=== PATIENT | male | born 1990 | race African-American/Black ===

== ENCOUNTER 2016-07-01 05:24 | Inpatient (IN) | payer MEDICARE, MEDICAID ==
[2016-07-01] MEDS ORDERED: Clindamycin 900 MG IVPREMIX(* 900 MG/50 ML SDV IV ONE (06:15)
[2016-07-01] MEDS ORDERED: cefTRIAXone(*) 1 GM in NS 0.9% 50 ML* 50 ML IVPB ONE (06:15)
[2016-07-01 08:41] LABS: Hematocrit 49 % (42-52); Hemoglobin 15.9 g/dl (14.0-18.0); Mean Corpuscular HGB Conc 33 g/dl (31-36); Mean Corpuscular Hemoglobin 29 pg (27-31); Mean Corpuscular Volume 88 fL (80-94); Mean Platelet Volume 10 um3 (7.4-10.4); Red Blood Count 5.56 10^6/ul (4.0-5.4); Red Cell Distribution Width 13 % (10.5-15); White Blood Count 11.6 10^3/ul (3.5-10.8)
[2016-07-01 08:57] LABS: Albumin 3.6 g/dL (3.2-5.2); BUN/Creatinine Ratio 11.4 (8-20); Calcium 9.3 mg/dL (8.6-10.3); EGFR African American 175.3 (>60); EGFR Non-African American 136.3 (>60); Globulin 4.3 g/dL (2-4); Potassium 3.8 mmol/L (3.5-5.0); Total Bilirubin 0.3 mg/dL (0.2-1.0); Total Protein 7.9 g/dL (6.4-8.9)
[2016-07-01] MEDS ORDERED: cefTRIAXone VIAL(*) 1,000 MG in NS 0.9% 50 ML* 50 ML IVPB SCH (09:03)
[2016-07-01] MEDS ORDERED: Ibuprofen PED LIQ* 100 MG/5 ML UDC G TUBE PRN (09:19)
[2016-07-01] MEDS ORDERED: Al Hydrox/Mg Hydrox/Simet LIQ* 30 ML UDC G TUBE PRN (09:19)
[2016-07-01] MEDS ORDERED: Albuterol 2.5 MG/3 ML NEB.SOL* (0.083%) INH PRN (09:19)
[2016-07-01] MEDS ORDERED: Acetaminophen PED LIQ* 160 MG/5 ML UDC G TUBE PRN (09:19)
[2016-07-01] MEDS ORDERED: Polyethylene Glycol 3350* 17 GM PACKET G TUBE PRN (09:19)
[2016-07-01] MEDS ORDERED: Mupirocin 2% OINT* TUBE TOPICAL PRN (09:19)
--- NOTE | 2016-07-01 09:23 | RAD ---
INDICATION: Shortness of breath. COMPARISON: Comparison is made with a prior study from October 21, 2015 TECHNIQUE: 2 portable films of the chest were obtained. FINDINGS: Cardiac and mediastinal contours appear to be within normal limits. Note is made of a tracheostomy tube. There is mild increased density present in the left hemithorax which appears to be due to positioning and rotation. No focal infiltrate or pleural effusion is seen. The lungs are underinflated. There is a moderate to severe dorsal lumbar scoliosis convex toward the right. The patient is status post posterior spinal fusion. IMPRESSION: NO EVIDENCE FOR ACUTE FINDING.
[2016-07-01] MEDS ORDERED: PHENobarbital LIQ(*) 30 MG/7.5 ML UDC PEG TUBE SCH ×2 (10:00→18:00)
[2016-07-01] MEDS ORDERED: Acetaminophen ADULT LIQ* 650 MG/20.3 ML UDC PEG TUBE PRN (10:30)
[2016-07-01] MEDS ORDERED: Ibuprofen ADULT LIQ* 600 MG/30 ML UDC PEG TUBE PRN (10:31)
[2016-07-01] MEDS: NS 0.9% 1000 ML* 1,000 ML IV SCH (11:11)
[2016-07-01] MEDS: Azithromycin IV(*) 500 MG in NS 0.9% 250 ML* 250 ML IVPB SCH (11:12)
[2016-07-01] MEDS: Budesonide NEB* 0.5 MG/2 ML NEB.SOLN INH SCH ×2 (11:21→20:52)
[2016-07-01] MEDS: PHENobarbital LIQ(*) 30 MG/7.5 ML UDC G TUBE SCH (12:41)
[2016-07-01] MEDS: Baclofen TAB* 10 MG G TUBE SCH ×3 (12:43→21:47)
[2016-07-01] MEDS: PHENobarbital LIQ(*) 30 MG/7.5 ML UDC PEG TUBE SCH (17:35)
[2016-07-01] MEDS ORDERED: DOCUSATE SODIUM G TUBE SCH (21:00)
--- NOTE | 2016-07-01 21:17 | HP ---
CC: Dr. Sheth HISTORY AND PHYSICAL: DATE OF ADMISSION: 07/01/16 PRIMARY CARE PROVIDER: Dr. Sheth. CHIEF COMPLAINT: Increased sleepiness, decreased oxygen saturation, and sputum production. HISTORY OF PRESENT ILLNESS: Mr. Walter is a 25-year-old male with severe developmental delay, cere bral palsy, seizure disorder and asthma who presented to the emergency room with concerns for low ox ygen saturations, increased secretions, and perhaps increased sleepiness. The patient the day prior to admission was noted to be sleepier than usual; however, had very little other issues. The patie nt was noted to have a low-grade temp the day prior to admission. He has had more production out of his tracheostomy than usual, which was odd. However, in general, he was appearing to be okay. On the morning of admission, he appeared worse and therefore he was brought to the ER for evaluation. Upon arrival to the emergency room, the patient required deep suctioning with the removal of copious amount of sputum. Since that time, the patient has appeared much improved. He is alert. He is no t in any respiratory distress, and his O2 saturations have been excellent. Of note, the patient lives at home with his grandmother. There has been upper respiratory illnesses going around the home. PAST MEDICAL HISTORY: 1. Cerebral palsy. 2. Seizure disorder. 3. Asthma. 4. Severe developmental delay. PAST SURGICAL HISTORY: 1. Tracheostomy. 2. G-tube placement. 3. Spinal fusion with jack placement. 4. Abdominal surgery for what was felt to be an abdominal abscess. MEDICATIONS: 1. Phenobarbital 20 mg/mL 15 mL p.o. q.a.m., 20 mL p.o. q.p.m. 2. MiraLAX 8.5 g p.o. daily. 3. MiraLAX 17 g p.o. daily p.r.n. no BM in 48 hours. 4. Bactroban applied topically to stomas twice daily p.r.n. redness. 5. Atrovent nasal spray 2 squirts to both nostrils twice daily. 6. Ibuprofen 100 mg/5 mL 20 mL per tube q.6 hours p.r.n. pain or fever. 7. Nexium 20 mg per tube twice daily. 8. Colace 60 mg/15 mL 15 mL per tube twice daily. 9. Budesonide 1 neb inhaled twice daily. 10. Baclofen 30 mg per tube 4 times a day. 11. Mylanta 30 mL per tube q.6 hours p.r.n. indigestion. 12. Albuterol 1 neb inhaled q.4 hours p.r.n. shortness of breath. 13. Tylenol 160 mg/5 mL 20 mL per tube q.4 hours p.r.n. pain or fever. ALLERGIES: No known drug allergies. FAMILY HISTORY: Mom and dad are both . SOCIAL HISTORY: The patient does not smoke. He does not drink. He lives with his grandmother, Aryan allen, who is his healthcare proxy. He has a private care at home. REVIEW OF SYSTEMS: Unobtainable. PHYSICAL EXAMINATION GENERAL: The patient is a well developed, male, who has upper and lower extremity contractures, tracheostomy in place, lying flat on his back in bed, in no acute distress. VITAL SIGNS: Blood pressure 116/76, pulse 77, respirations 26, temp 98.0, O2 sat is 99% on 35% trac h collar. HEENT: Pupils are equal. They are round. Extraocular muscles are intact. Oropharynx is clear. Or al mucosa is moist. The patient had a tracheostomy in place. No significant sputum is noted coming out of the tracheostomy. PULMONARY: Lungs are clear to auscultation bilaterally. CARDIAC: Normal S1, S2. Regular rate and rhythm. There are no murmurs. ABDOMEN: Bowel sounds are present. Abdomen is soft, nontender, and nondistended. There is Mitul-Terry button in the left upper quadrant. MUSCULOSKELETAL: There are significant contractures of bilateral upper and lower extremities. NEUROLOGIC: The patient is alert. He does not move any of his limbs. SKIN: Warm and dry. There are no rashes. There is a large scar on the right lower quadrant of the abdomen consistent with his prior abdominal surgery. PSYCH: Unable to be evaluated. DIAGNOSTIC STUDIES/LABORATORY DATA: WBC 11.6, hemoglobin 15.9, hematocrit 49, platelets 189, INR 1 .05. Sodium 135, potassium 3.8, chloride 100, CO2 28, BUN 8, creatinine 0.7, glucose 106, lactic ac id 0.5, calcium 9.3, bilirubin 0.3, AST 14, ALT 19, alk phos 90, troponin 0.01, albumin 3.6. Chest x-ray: No acute pulmonary findings to my evaluation. However, this has not been read by the radiol ogist yet. ASSESSMENT AND PLAN: Mr. Walter is a 25-year-old male with severe developmental delay and cerebral palsy, status post tracheostomy who presents to the emergency room with perhaps low O2 saturation a nd increased mucous out of tracheostomy and is being admitted for observation for upper respiratory infection. 1. Upper respiratory infection. There was concern initially for aspiration. I do not think this i s actually the case. Sounds as if the patient just made a significant amount of suctioning when he arrived to the emergency room. The patient is now essentially back to his baseline. He does have a mildly elevated white blood cell count. Therefore, I will place him ceftriaxone and azithromycin. A flu swab will be obtained. 2. Seizure disorder. The patient will continue on his usual doses of phenobarbital. 3. Constipation. The patient will continue on his usual home medication regimen. 4. Cerebral palsy. Diagnosis noted. The patient will continue on his usual dose of Baclofen. 5. DVT prophylaxis. According to Adult Thrombosis Prophylaxis Risk Factor Assessment Guide, the kylah garces has a total risk factor score of 2 making him moderate risk. He will be placed on heparin 500 0 units subcutaneous q.12 hours. 6. Code status is full. TIME SPENT: 65 minutes were spent admitting this patient. [id number]/[facility] #: [id number]
[2016-07-01] MEDS: IPRATROPIUM BROMIDE BOTH NARES SCH (21:39)
[2016-07-01] MEDS: Lansoprazole SOLUTAB* 30 MG G TUBE SCH (21:47)
[2016-07-01] MEDS: Heparin VIAL(*) 5000 UNITS/ML VIAL (FIVE THOUSAND) SUBCUT SCH (21:47)
[2016-07-02] MEDS: NS 0.9% 1000 ML* 1,000 ML IV SCH (02:15)
[2016-07-02] MEDS: cefTRIAXone VIAL(*) 1,000 MG in NS 0.9% 50 ML* 50 ML IVPB SCH (06:13)
[2016-07-02] MEDS: Budesonide NEB* 0.5 MG/2 ML NEB.SOLN INH SCH ×2 (07:53→21:31)
[2016-07-02 09:22] LABS: Hematocrit 48 % (42-52); Hemoglobin 15.9 g/dl (14.0-18.0); Mean Corpuscular HGB Conc 33 g/dl (31-36); Mean Corpuscular Hemoglobin 30 pg (27-31); Mean Corpuscular Volume 89 fL (80-94); Mean Platelet Volume 9 um3 (7.4-10.4); Red Blood Count 5.35 10^6/ul (4.0-5.4); Red Cell Distribution Width 14 % (10.5-15); White Blood Count 7.7 10^3/ul (3.5-10.8)
[2016-07-02] MEDS: Azithromycin IV(*) 500 MG in NS 0.9% 250 ML* 250 ML IVPB SCH (09:31)
[2016-07-02 09:33] LABS: BUN/Creatinine Ratio 13.2 (8-20); Calcium 9.3 mg/dL (8.6-10.3); EGFR African American 241.7 (>60); EGFR Non-African American 187.9 (>60); Potassium 4.1 mmol/L (3.5-5.0)
[2016-07-02] MEDS: Heparin VIAL(*) 5000 UNITS/ML VIAL (FIVE THOUSAND) SUBCUT SCH ×2 (09:34→20:49)
[2016-07-02] MEDS: Lansoprazole SOLUTAB* 30 MG G TUBE SCH ×2 (09:35→20:49)
[2016-07-02] MEDS: Polyethylene Glycol 3350* 17 GM PACKET G TUBE SCH (09:36)
[2016-07-02] MEDS: PHENobarbital LIQ(*) 30 MG/7.5 ML UDC G TUBE SCH (09:36)
[2016-07-02] MEDS: Baclofen TAB* 10 MG G TUBE SCH ×4 (09:36→20:49)
[2016-07-02] MEDS: IPRATROPIUM BROMIDE BOTH NARES SCH ×2 (09:49→20:49)
--- NOTE | 2016-07-02 10:55 | PN ---
Subjective Date of Service: 07/02/16 Interval History: Pt is happy per his personal nurse at the bedside. The patient is noted to have a copious amount of clear sputum coming out of his trach but this is reportedly normal per his nurse. Objective Active Medications: Acetaminophen (Tylenol Adult Liq*) 650 mg PEG TUBE Q4H PRN PRN Reason: pain/fever Al Hydrox/Mg Hydrox/Simethicone (Maalox Plus*) 30 ml G TUBE Q6HR PRN PRN Reason: INDIGESTION Albuterol (Ventolin 2.5 Mg/3 Ml Neb.Elsie*) 2.5 mg INH Q4H PRN PRN Reason: SHORTNESS OF BREATH Baclofen (Lioresal Tab*) 30 mg G TUBE QID [facility] Last Admin: 07/02/16 09:36 Dose: 30 mg Budesonide (Pulmicort Neb*) 0.5 mg INH BID [facility] Last Admin: 07/02/16 07:53 Dose: 0.5 mg Heparin Sodium (Porcine) (Heparin Vial(*)) 5,000 units SUBCUT Q12HR [facility] Last Admin: 07/02/16 09:34 Dose: 5,000 units Ceftriaxone Sodium 1,000 mg/ (Sodium Chloride) 50 mls @ 200 mls/hr IVPB Q24H [facility] Last Admin: 07/02/16 06:13 Dose: 200 mls/hr Azithromycin 500 mg/ Sodium (Chloride) 250 mls @ 250 mls/hr IVPB Q24H [facility] Last Admin: 07/02/16 09:31 Dose: 250 mls/hr Ibuprofen (Motrin Liq Adult*) 400 mg PEG TUBE QID PRN PRN Reason: PAIN OR TEMPERATURE Lansoprazole (Prevacid Solutab*) 30 mg G TUBE BID [facility] Last Admin: 07/02/16 09:35 Dose: 30 mg Mupirocin (Bactroban 2 % Oint*) 1 applic TOPICAL BID PRN PRN Reason: redness around stoma Non-Formulary Medication (Ipratropium [place] (Nasal) [Ipratropium [place]]) 2 spray BOTH NARES BID [facility] Last Admin: 07/02/16 09:49 Dose: Not Given Phenobarbital (Phenobarbital Liq(*)) 60 mg G TUBE DAILY [facility] Last Admin: 07/02/16 09:36 Dose: 60 mg Phenobarbital (Phenobarbital Liq(*)) 80 mg PEG TUBE QPM [facility] Last Admin: 07/01/16 17:35 Dose: 80 mg Polyethylene Glycol/Electrolytes (Miralax*) 8.5 gm G TUBE DAILY [facility] Last Admin: 07/02/16 09:36 Dose: 8.5 gm Polyethylene Glycol/Electrolytes (Miralax*) 17 gm G TUBE DAILY PRN PRN Reason: if no BM in 48hr Vital Signs 07/01/16 07/01/16 07/01/16 10:59 11:34 12:41 Temperature 98.0 F Pulse Rate 76 72 Respiratory 20 16 20 Rate Blood Pressure 156/100 (mmHg) O2 Sat by Pulse 100 95 Oximetry 07/01/16 07/01/16 07/01/16 14:41 15:23 15:54 Temperature 97.9 F Pulse Rate 100 Respiratory 16 18 Rate Blood Pressure 119/67 (mmHg) O2 Sat by Pulse 99 Oximetry 07/01/16 07/01/16 07/01/16 17:35 19:30 19:35 Temperature Pulse Rate Respiratory 16 18 18 Rate Blood Pressure (mmHg) O2 Sat by Pulse Oximetry 07/01/16 07/01/16 07/01/16 19:49 20:53 23:31 Temperature 97.9 F 98.4 F Pulse Rate 78 68 89 Respiratory 20 18 20 Rate Blood Pressure 110/65 115/78 (mmHg) O2 Sat by Pulse 97 100 100 Oximetry 07/02/16 07/02/16 07/02/16 03:52 07:21 08:00 Temperature 98.2 F 98.8 F Pulse Rate 116 115 Respiratory 18 22 20 Rate Blood Pressure 141/79 136/75 (mmHg) O2 Sat by Pulse 100 100 100 Oximetry 07/02/16 07/02/16 07/02/16 08:04 08:38 09:36 Temperature Pulse Rate 100 110 Respiratory 15 20 Rate Blood Pressure (mmHg) O2 Sat by Pulse 100 100 Oximetry Oxygen Devices in Use Now: - - 35% via trach collar Appearance: Young male sitting in a recliner, smiling, awake, NAD Eyes: No Scleral Icterus Ears/Nose/Mouth/Throat: Mucous Membranes Moist Respiratory: Symmetrical Chest Expansion and Respiratory Effort, - - coarse ronchi in all lung aleman Cardiovascular: NL Sounds; No Murmurs; No JVD, No Edema, - - tachycardic, somewhat difficult to hear over his coarse breath sounds Abdominal: NL Sounds; No Tenderness; No Distention, - - Cosmo button on LUQ Extremities: No Clubbing, Cyanosis, - - contracted extremities (UE/LE) Skin: No Rash or Ulcers, No Nodules or Sclerosis Neurological: Alert and Oriented x 3 Result Diagrams: 07/02/16 09:14 07/02/16 09:14 Microbiology and Other Data: Microbiology 07/01/16 09:20 Influenza Types A,B Antigen (TORITO) - Final Nasal Specimen received for Influenza A/B Molecular testing Assess/Plan/Problems-Billing Mr Walter is a 25 yo M who has a h/o severe developmental delay, CP and seizure disorder who was admitted to [facility] for evaluation of URI. - Patient Problems (1) URI (upper respiratory infection) Current Visit: Yes Status: Acute Code(s): J06.9 - ACUTE UPPER RESPIRATORY INFECTION, UNSPECIFIED SNOMED Code(s): 19480903 Comment: The patient had a mildly elevated WBC count yesterday. Now improved. I am not convinced he has pneumonia however will continue Abx therapy for 7 days total. Likely viral URI. Today the patient has become tachycardic with an unclear cause. I would like to continue to monitor the patient overnight to ensure his HR remains stable to improved. Will stop IVF. (2) Seizure disorder Current Visit: Yes Status: Chronic Code(s): G40.909 - EPILEPSY, UNSP, NOT INTRACTABLE, WITHOUT STATUS EPILEPTICUS SNOMED Code(s): 740429222 Comment: Continue phenobarbital at home dose. (3) Severe developmental delay Current Visit: Yes Status: Acute Code(s): R62.50 - UNSP LACK OF EXPECTED NORMAL PHYSIOL DEV IN CHILDHOOD SNOMED Code(s): 941483385 Comment: Diagnosis is noted. Continue baclofen for contractures. (4) DVT prophylaxis Current Visit: Yes Status: Acute Code(s): LDY4451 - SNOMED Code(s): 413742557 Comment: SCDs (5) Full code status Current Visit: Yes Status: Acute Code(s): Z78.9 - OTHER SPECIFIED HEALTH STATUS SNOMED Code(s): 692950661
[2016-07-02] MEDS: PHENobarbital LIQ(*) 30 MG/7.5 ML UDC PEG TUBE SCH (17:42)
[2016-07-03] MEDS: cefTRIAXone VIAL(*) 1,000 MG in NS 0.9% 50 ML* 50 ML IVPB SCH (05:54)
[2016-07-03 08:26] VITALS: BP 105/68
[2016-07-03] MEDS: Budesonide NEB* 0.5 MG/2 ML NEB.SOLN INH SCH (08:35)
[2016-07-03] MEDS: Baclofen TAB* 10 MG G TUBE SCH (09:26)
[2016-07-03] MEDS: Lansoprazole SOLUTAB* 30 MG G TUBE SCH (09:27)
[2016-07-03] MEDS: Heparin VIAL(*) 5000 UNITS/ML VIAL (FIVE THOUSAND) SUBCUT SCH (09:27)
[2016-07-03] MEDS: PHENobarbital LIQ(*) 30 MG/7.5 ML UDC G TUBE SCH (09:27)
[2016-07-03] MEDS: Polyethylene Glycol 3350* 17 GM PACKET G TUBE SCH (09:27)
--- NOTE | 2016-07-03 10:09 | PN ---
Subjective Date of Service: 07/03/16 Interval History: Pt is lying in bed, non-verbal. Objective Active Medications: Acetaminophen (Tylenol Adult Liq*) 650 mg PEG TUBE Q4H PRN PRN Reason: pain/fever Al Hydrox/Mg Hydrox/Simethicone (Maalox Plus*) 30 ml G TUBE Q6HR PRN PRN Reason: INDIGESTION Albuterol (Ventolin 2.5 Mg/3 Ml Neb.Elsie*) 2.5 mg INH Q4H PRN PRN Reason: SHORTNESS OF BREATH Baclofen (Lioresal Tab*) 30 mg G TUBE QID [facility] Last Admin: 07/03/16 09:26 Dose: 30 mg Budesonide (Pulmicort Neb*) 0.5 mg INH BID [facility] Last Admin: 07/03/16 08:35 Dose: 0.5 mg Heparin Sodium (Porcine) (Heparin Vial(*)) 5,000 units SUBCUT Q12HR [facility] Last Admin: 07/03/16 09:27 Dose: 5,000 units Ceftriaxone Sodium 1,000 mg/ (Sodium Chloride) 50 mls @ 200 mls/hr IVPB Q24H [facility] Last Admin: 07/03/16 05:54 Dose: 200 mls/hr Azithromycin 500 mg/ Sodium (Chloride) 250 mls @ 250 mls/hr IVPB Q24H [facility] Last Admin: 07/02/16 09:31 Dose: 250 mls/hr Ibuprofen (Motrin Liq Adult*) 400 mg PEG TUBE QID PRN PRN Reason: PAIN OR TEMPERATURE Lansoprazole (Prevacid Solutab*) 30 mg G TUBE BID [facility] Last Admin: 07/03/16 09:27 Dose: 30 mg Mupirocin (Bactroban 2 % Oint*) 1 applic TOPICAL BID PRN PRN Reason: redness around stoma Pto - Ipratropium [place] (Nasal) [ Ipratropium [place]] 2 [place]) 2 spray BOTH NARES BID [facility] Last Admin: 07/02/16 20:49 Dose: 2 spray Phenobarbital (Phenobarbital Liq(*)) 60 mg G TUBE DAILY [facility] Last Admin: 07/03/16 09:27 Dose: 60 mg Phenobarbital (Phenobarbital Liq(*)) 80 mg PEG TUBE QPM [facility] Last Admin: 07/02/16 17:42 Dose: 80 mg Polyethylene Glycol/Electrolytes (Miralax*) 8.5 gm G TUBE DAILY [facility] Last Admin: 07/03/16 09:27 Dose: 8.5 gm Polyethylene Glycol/Electrolytes (Miralax*) 17 gm G TUBE DAILY PRN PRN Reason: if no BM in 48hr Vital Signs 07/02/16 07/02/16 07/02/16 11:33 11:36 11:55 Temperature 98.4 F Pulse Rate 91 Respiratory 20 20 20 Rate Blood Pressure 126/72 (mmHg) O2 Sat by Pulse 99 Oximetry 07/02/16 07/02/16 07/02/16 15:22 17:42 19:28 Temperature 98.4 F 98.3 F Pulse Rate 88 109 Respiratory 22 22 24 Rate Blood Pressure 110/71 118/68 (mmHg) O2 Sat by Pulse 99 100 Oximetry 07/02/16 07/02/16 07/02/16 19:30 19:35 19:42 Temperature Pulse Rate Respiratory 16 16 16 Rate Blood Pressure (mmHg) O2 Sat by Pulse 100 Oximetry 07/02/16 07/03/16 07/03/16 23:32 04:02 07:31 Temperature 97.2 F 97.3 F 98.3 F Pulse Rate 85 62 62 Respiratory 15 19 16 Rate Blood Pressure 112/79 113/73 105/68 (mmHg) O2 Sat by Pulse 100 100 100 Oximetry 07/03/16 07/03/16 08:38 09:27 Temperature Pulse Rate 80 Respiratory 15 20 Rate Blood Pressure (mmHg) O2 Sat by Pulse 98 Oximetry Oxygen Devices in Use Now: - - 35% FiO2 via trach collar-98% saturation Appearance: Young male lying in bed, NAD Eyes: No Scleral Icterus Ears/Nose/Mouth/Throat: Mucous Membranes Moist Respiratory: Symmetrical Chest Expansion and Respiratory Effort, Clear to Auscultation Cardiovascular: NL Sounds; No Murmurs; No JVD, RRR, No Edema Abdominal: NL Sounds; No Tenderness; No Distention Extremities: No Clubbing, Cyanosis Skin: No Rash or Ulcers, No Nodules or Sclerosis Neurological: - - alert Result Diagrams: 07/02/16 09:14 07/02/16 09:14 Microbiology and Other Data: Microbiology 07/01/16 09:20 Influenza Types A,B Antigen ([facility]) - Final Nasal Specimen received for Influenza A/B Molecular testing Assess/Plan/Problems-Billing Mr Walter is a 25 yo M who has a h/o severe developmental delay, CP and seizure disorder who was admitted [place] [facility] [place]. - Patient Problems (1) URI (upper respiratory infection) Current Visit: Yes Status: Acute Code(s): J06.9 - ACUTE UPPER RESPIRATORY INFECTION, UNSPECIFIED SNOMED Code(s): 27538646 Comment: Improved. Tachycardia has resolved-unclear what was driving that up yesterday. Will treat with augmentin x 4 more days. (2) Seizure disorder Current Visit: Yes Status: Chronic Code(s): G40.909 - EPILEPSY, UNSP, NOT INTRACTABLE, WITHOUT STATUS EPILEPTICUS SNOMED Code(s): 142437529 Comment: Continue phenobarbital at home dose. (3) Severe developmental delay Current Visit: Yes Status: Acute Code(s): R62.50 - UNSP LACK OF EXPECTED NORMAL PHYSIOL DEV IN CHILDHOOD SNOMED Code(s): 651619756 Comment: Diagnosis is noted. Continue baclofen for contractures. (4) DVT prophylaxis Current Visit: Yes Status: Acute Code(s): ECL3854 - SNOMED Code(s): 594509848 Comment: SCDs (5) Full code status Current Visit: Yes Status: Acute Code(s): Z78.9 - OTHER SPECIFIED HEALTH STATUS SNOMED Code(s): 039689041 Status and Disposition: d/c home
[2016-07-03] MEDS: Azithromycin IV(*) 500 MG in NS 0.9% 250 ML* 250 ML IVPB SCH (10:21)
[2016-07-03] MEDS: IPRATROPIUM BROMIDE BOTH NARES SCH (10:24)
--- NOTE | 2016-07-03 16:22 | DS ---
DISCHARGE SUMMARY: DATE OF ADMISSION: 07/01/16 DATE OF DISCHARGE: 07/03/16 PRIMARY CARE PROVIDER: Dr. Sheth. PRINCIPAL DIAGNOSIS: Probably upper respiratory tract infection - possibly bacteria but more likely viral. SECONDARY DIAGNOSES: 1. Seizure disorder. 2. Severe developmental delay. DISCHARGE MEDICATIONS: 1. Phenobarbital 60 mg per tube q.a.m. 80 per tube q.p.m. 2. Ibuprofen 400 mg per tube q.6 hours p.r.n. pain. 3. Colace 60 mg per tube b.i.d. 4. Tylenol 650 mg per tube q.4 hours p.r.n. pain or fever. 5. Ipratropium bromide nasal spray 2 squirts both nostrils twice daily. 6. MiraLax 8.5 g per tube daily. 7. Albuterol 1 neb inhaled q.4 hours p.r.n. shortness of breath. 8. Mylanta 30 mL per tube q.6 hours p.r.n. indigestion. 9. MiraLax 17 g per tube daily p.r.n. No BM in 48 hours. 10. Bactroban apply topically twice daily to stoma as needed. 11. Nexium 20 mg per tube twice daily. 12. Budesonide 1 neb inhaled twice daily. 13. Baclofen 30 mg per tube q.i.d. 14. Augmentin 500 mg per tube twice daily. HOSPITAL COURSE: Mr. Walter is a 25-year-old male with a history of severe developmental delay and a seizure disorder with tracheostomy at baseline, who was brought to the emergency room with complaints of poor oxygen saturations and possible decreased lethargy. The patient was admitted to the medical floor for observation. It was unclear what was driving his condition; however, it was felt to be likely a viral URI. However, antibiotics were continued for concern of possible pneumonia. The patient improved rather quickly. He never had a fever. His white blood cell count was mildly elevated on admission; however, trended to normal the day after admission. The patient the day after admission; however, was noted to be tachycardic in the 100s. The etiology of this was not completely clear. The decision was made to observe him overnight and today the patient is doing much better. At this point, it was felt that the patient is stable for discharge home. FOLLOWUP CONCERNS: The patient is being discharged home today, 07/03/16. ACTIVITY: Activity level is as tolerated. DIET: Promote 4 cans per day with 100 mL flushes following the tube feed. CONDITION ON DISCHARGE: Stable. FOLLOWUP: The patient is to follow up with Dr. Sheth in the next 4 to 7 days. TIME SPENT: Twenty-five minutes were spent discharging this patient. CC: Dr. Sheth. * [id number]/[facility] #: [id number]
== END 2016-07-03 12:00 | disposition home or self-care (01) | DRG 153 ==
LOC: ED 05:24 → MED 08:31 → SSU 09:55
PROVIDERS: ADMIT Internal Medicine; ATTEND Hospitalist
DX: J06.9 Acute upper respiratory infection, unspecified (principal); Z43.0 Encounter for attention to tracheostomy; Z93.1 Gastrostomy status; R62.50 Unspecified lack of expected normal physiological development in childhood; J45.909 Unspecified asthma, uncomplicated; G80.9 Cerebral palsy, unspecified; G40.909 Epilepsy, unspecified, not intractable, without status epilepticus; K59.00 Constipation, unspecified
CPT/HCPCS: 36415; 71010; 80048; 80053; 83605; 84484; 85025; 85027; 85610; 85730; 87040; 87077; 87150; 87205; 87502; 93005; 94640; 94760; A9270-GY; J0456; J0696; J1644

== ENCOUNTER 2017-04-26 21:12 | Emergency (ER) | payer MEDICARE, MEDICAID ==
[2017-04-26 21:18] VITALS: BP 133/87
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
== END 2017-04-26 22:27 | disposition home or self-care (01) ==
LOC: ED 21:12
DX: G82.50 Quadriplegia, unspecified (principal); G80.9 Cerebral palsy, unspecified; Z87.19 Personal history of other diseases of the digestive system
CPT/HCPCS: 99282

== ENCOUNTER 2017-09-26 04:33 | Emergency (ER) | payer MEDICARE, MEDICAID ==
[2017-09-26 05:41] LABS: Urine Appearance Cloudy; Urine Blood 2+ (Negative); Urine Color Yellow; Urine Ketones Negative (Negative); Urine Protein 2+(100 mg/dL) (Negative); Urine Specific Gravity 1.009 (1.010-1.030); Urine Urobilinogen Negative (Negative)
[2017-09-26] MEDS ORDERED: NS 0.9% 1000 ML* 1,000 ML IV ONE (05:48)
[2017-09-26] MEDS ORDERED: Levofloxacin 500 MG IVPREMIX(* 500 MG/100 ML BAG IVPB ONE (05:50)
[2017-09-26 06:48] LABS: ABS Basophils 0.1 10^3/ul (0-0.2); ABS Eosinophils 1.1 10^3/ul (0-0.6); ABS Lymphocytes 1.5 10^3/ul (1.0-4.8); ABS Monocytes 1.1 10^3/ul (0-0.8); ABS Nucleated RBC 0 10^3/ul; Eosinophil % 12.7 % (0-6); Hematocrit 46 % (42-52); Hemoglobin 16.3 g/dl (14.0-18.0); Lymphocyte % 16.8 % (25-47); Mean Corpuscular HGB Conc 35 g/dl (31-36); Mean Corpuscular Hemoglobin 31 pg (27-31); Mean Corpuscular Volume 88 fL (80-94); Mean Platelet Volume 8.9 um3 (7.4-10.4); Nucleated Red Blood Cells % 0.1; Platelet Count 172 10^3/ul (150-450); Red Blood Count 5.23 10^6/ul (4.00-5.40); Red Cell Distribution Width 13 % (10.5-15); White Blood Count 8.8 10^3/ul (3.5-10.8)
[2017-09-26 06:56] LABS: INR 1.14 (0.77-1.02)
[2017-09-26 07:09] LABS: EGFR Non-African American 147.4 (>60)
[2017-09-26] MEDS ORDERED: Iohexol 300* (CONTRAST) 10 ML SDV IV ONE (07:29)
--- NOTE | 2017-09-26 08:41 | RAD ---
Indication: Decreased urine output, chest, abdomen pain. Contrast: Administered 76.2 ml of OMNIPAQUE 300 mg/ml CT of the chest, abdomen and pelvis was performed after oral and IV contrast administration. Coronal and sagittal reconstructed images were obtained. Tracheostomy tube is in place. There is no mediastinal or hilar adenopathy. The heart demonstrates no pericardial effusion. The lung aleman demonstrate no evidence of alveolar consolidation. Marked scoliosis with posterior rodding is noted. CT of the abdomen and pelvis demonstrates liver to be normal in size. No focal lesions or intrahepatic duct dilatation. Spleen is normal in size. There is a axial-type hiatal hernia noted. The kidneys demonstrates right hydronephrosis with atrophy of the right kidney. There appears to be delay in excretion of the right kidney with calculus in the lower pole of the right kidney. No obvious ureteral calculi is noted. There is stool with fecal impaction noted. Mark catheter is in place. The urinary bladder is collapsed. No free fluid is noted in the pelvis. IMPRESSION: Fecal stasis. Atrophic right kidney with likely chronic right hydronephrosis. Calculus is noted in the lower pole of the right kidney which is nonobstructive. There may be obstructive uropathy of the right kidney although no obvious calculus is noted in the ureter. No pneumonia is noted. Scoliosis of the thoracic spine. Posterior Altman rods are in place.
--- NOTE | 2017-09-26 09:44 | ED ---
Figueroa Tinoco Tiffany, scribed for Wai Sandra on 09/26/17 at 0844 . Progress - Progress Note Progress Note: Patient is signed out from Dr. Ellis, awaiting Chest/Abd/Pel CT, pending dispo. Chest/Abdomen/Pelvis CT, per radiologist, shows Fecal stasis. Atrophic right kidney with likely chronic right hydronephrosis. Calculus is noted in the lower pole of the right kidney which is nonobstructive. There may be obstructive uropathy of the right kidney although no obvious calculus is noted in the ureter. No pneumonia is noted. Scoliosis of the thoracic spine. Posterior Altman rods are in place. ED physician has reviewed this report. Re-Evaluation - Re-Evaluation First Eval Re-Evaluation Time: 09:22 Comment: Patient feels better. Grandmother, fast food supervisor and patient are agreeable to discharge. Course/Dx - Course Course Of Treatment: 26 y/o M BIB EMS complains of decreased frequency of urination since yesterday afternoon. Patient is signed out from Dr. Ellis, awaiting Chest/Abd/Pel CT and pending dispo. Discussed lab/scan results with patient and family. Patient will be discharged home with antibiotics with UTI and follow up from primary care provider. - Diagnoses Provider Diagnoses: Urinary tract infection Discharge - Sign-Out/Discharge Documenting (check all that apply): Discharge/Admit/Transfer - discharge - Discharge Plan Condition: Stable Disposition: HOME Prescriptions: Levofloxacin TAB* [Levaquin TAB*] 500 mg PO DAILY #9 tab Referrals: Arpit Sheth MD [Primary Care Provider] - 3 Days Additional Instructions: Follow up with Dr. Sheth, your primary care provider, in 3 days. Return to the Emergency Department for new or worsening symptoms. The documentation as recorded by the Figueroa pineda Tiffany accurately reflects the service I personally performed and the decisions made by , Wai Sandra.
[2017-09-26 12:57] VITALS: BP 129/92
--- NOTE | 2017-09-30 23:15 | ED ---
Gamaliel Tinoco Jacob, scribed for Dolores Ellis MD on 09/26/17 at 0711 . GI/ HPI - HPI Summary HPI Summary: Pt is a 26 y/o male brought in by EMS accompanied by wood caulker and grandmother due to concerns of decreased frequency of urination. Pt is a level 5 caveat and Hx is gathered from pt's wood caulker and grandmother. Pt appears abnormally bloated and is retaining a lot of fluid in abdomen. Pt has a catheter present, which was changed by wood caulker in the evening of 09/25/17 (one day ago). Per triage, urine is described as cloudy, concentrated, and odorous and there has been 400 cc urine in bag since 1600 one day ago (09/25). Last bowel movement was 1100 yesterday and reported as normal. Pt receives tube feed at 100cc/hr, but wood caulker states feeding was turned off at 0200 today. Pt receives Promote formula w/fluids four times a day. Caretakers report pt is afebrile. - History of Current Complaint Chief Complaint: EDUrogenitalProblems Time Seen by Provider: 09/26/17 04:49 Stated Complaint: GENERAL ILLNESS Hx Obtained From: Family/Physical Therapy Resident - level 5 caveat Hx From Patient Unobtainable Due To: Other - level 5 caveat due to severe developmental delay Onset/Duration: Started Hours Ago - 12 hours ago Current Severity: None Pain Intensity: 0 Associated Signs and Symptoms: Negative: Fever Aggravating Factor(s): Nothing Alleviating Factor(s): Nothing - Additional Pertinent History Primary Care Physician: [id number] - Allergy/Home Medications Allergies/Adverse Reactions: Allergies Allergy/AdvReac Type Severity Reaction Status Date / Time No Known Allergies Allergy Verified 09/26/17 04:54 PMH/Surg Hx/FS Hx/Imm Hx Endocrine/Hematology History: Denies: Hx Blood Transfusions, Hx Diabetes, Hx Thyroid Disease Cardiovascular History: Denies: Hx Congestive Heart Failure Respiratory History: Reports: Hx Asthma, Other Respiratory Problems/Disorders Denies: Hx Chronic Bronchitis, Hx Chronic Obstructive Pulmonary Disease (COPD ), Hx Cystic Fibrosis, Hx Lung Cancer, Hx Pleural Effusion, Hx Pneumonia, Hx Pulmonary Edema, Hx Pulmonary Embolism, Hx Seasonal Allergies, Hx Sleep Apnea GI History: Reports: Hx Gastroesophageal Reflux Disease, Hx Ileostomy - REMOVED , Hx Ulcer, Other GI Disorders Denies: Hx Cirrhosis, Hx Crohn's Disease, Hx Diverticulosis, Hx Gall Bladder Disease, Hx Gastrointestinal Bleed, Hx Hiatal Hernia, Hx Irritable Bowel, Hx Jaundice, Hx Obstructive Bowel, Hx Pyloric Stenosis History: Reports: Other Problems/Disorders - STRAIGHT CATH Denies: Hx Acute Renal Failure, Hx Benign Prostatic Hyperplasia, Hx Chronic Renal Failure, Hx Dialysis, Hx Kidney Infection, Hx Kidney Stones Musculoskeletal History: Reports: Hx Back Problems - steel jack in back, Hx Congenital Bone Abnormalities - CONTRACTURES, Other Musculoskeletal History - cerebal palsey Denies: Hx Arthritis, Hx Bursitis, Hx Fibromyalgia, Hx Gout, Hx Orthopedic Injury, Hx Osteoporosis, Hx Scoliosis, Hx Tendonitis Sensory History: Reports: Hx Legally Blind - SEE SHADOWS Denies: Hx Cataracts, Hx Contacts or Glasses, Hx Eye Injury, Hx Eye Prosthesis, Hx Glaucoma, Hx Macular Degeneration, Hx Vision Problem, Hx Deafness , Hx Hearing Aid, Hx Hearing Problem, Other Sensory Impairments Opthamlomology History: Reports: Hx Legally Blind - SEE SHADOWS Denies: Hx Cataracts, Hx Contacts or Glasses, Hx Eye Injury, Hx Eye Prosthesis, Hx Glaucoma, Hx Macular Degeneration, Hx Vision Problem, Other Sensory Impairments Neurological History: Reports: Hx Developmental Delay, Hx Seizures, Hx Spinal Cord Injury - RODS, Other Neuro Impairments/Disorders - Quadriplegia, cerebral palsy Denies: Hx Dementia, Hx Headaches, Hx Migraine, Hx Nerve Disease, Hx Transient Ischemic Attacks (TIA) - Surgical History Surgery Procedure, Year, and Place: RODS TO BACK, OSTOMY REMOVAL, TRACH PLACEMENT Infectious Disease History: No Infectious Disease History: Denies: Hx Hepatitis, Hx Tuberculosis, Traveled Outside the [place] in Last 30 Days - Family History Known Family History: Positive: Unknown - level 5 caveat - Social History Alcohol Use: None Hx Substance Use: No Substance Use Type: Reports: None Smoking Status (MU): Never Smoked Tobacco Review of Systems Negative: Fever Positive: Other - fluid retention and abdominal bloating Positive: frequency - reduced urination frequency, other - cloudy, concentrated , odorous urine All Other Systems Reviewed And Are Negative: No - Comments Additional Review of Systems Comments: level 5 caveat due to severe developmental delay Physical Exam - Summary Physical Exam Summary: VITAL SIGNS: Reviewed. GENERAL: Patient is contracted and is a small male for his age. Patient is not in any acute respiratory distress. HEAD AND FACE: No signs of trauma. No ecchymosis, hematomas or skull depressions. No sinus tenderness. EYES: PERRLA, EOMI x 2, No injected conjunctiva, no nystagmus. EARS: Hearing grossly intact. Ear canals and tympanic membranes are within normal limits. MOUTH: Oropharynx within normal limits. NECK: Supple, trachea is midline, no adenopathy, no JVD, no carotid bruit, no c- spine tenderness, neck with full ROM. Tracheostomy present. CHEST: Symmetric, no tenderness at palpation LUNGS: Decreased breath sounds bilaterally. No wheezing or crackles. CVS: Slight tachycardia. S1 and S2 present, no murmurs or gallops appreciated. ABDOMEN: Soft, non-tender. No signs of distention. No rebound no guarding, and no masses palpated. Bowel sounds are normal. Feeding tube and catheter present. EXTREMITIES: Contracted, no edema, no cyanosis or clubbing. SKIN: Dry and warm Triage Information Reviewed: Yes Vital Signs On Initial Exam: Initial Vitals Temp Pulse Resp BP Pulse Ox 98.8 F 103 19 148/88 93 09/26/17 04:54 09/26/17 04:54 09/26/17 04:54 09/26/17 04:54 09/26/17 04:54 Vital Signs Reviewed: Yes Diagnostics - Vital Signs Vital Signs Temp Pulse Resp BP Pulse Ox 09/26/17 05:43 100 18 124/83 09/26/17 05:27 82 93 09/26/17 04:54 98.8 F 103 19 148/88 93 - Laboratory Lab Results: Lab Results 09/26/17 Range/Units 05:25 Urine Color Yellow Urine Appearance Cloudy Urine pH 8.0 (5-9) Ur Specific [place] 1.009 L (1.010-1.030) Urine Protein 2+(100 mg/dl) A (Negative) Urine Ketones Negative (Negative) Urine Blood 2+ A (Negative) Urine Nitrate Negative (Negative) Urine Bilirubin Negative (Negative) Urine Urobilinogen Negative (Negative) Ur Leukocyte Esterase 3+ A (Negative) Urine WBC (Auto) 3+(>20/hpf) A (Absent) Urine RBC (Auto) 3+(>10/hpf) A (Absent) Ur Squamous Epith Cells Present A (Absent) Ur Transition Epith Cell Present A (Absent) Urine Bacteria Absent (Absent) Urine Glucose Negative (Negative) Result Diagrams: 09/26/17 06:38 09/26/17 06:38 Lab Statement: Any lab studies that have been ordered have been reviewed, and results considered in the medical decision making process. Re-Evaluation - Re-Evaluation First Eval Re-Evaluation Time: 09:22 Comment: Patient feels better. Grandmother, wood caulker and patient are agreeable to discharge. GIGU Course/Dx - Course Assessment/Plan: Pt is a 26 y/o male brought in by EMS due to concerns of decreased frequency of urination. Pt is a level 5 caveat and Hx is gathered from pt's wood caulker and grandmother. Pt appears abnormally bloated and is retaining a lot of fluid in abdomen. Pt has a catheter present, which was changed by wood caulker in the evening of 09/25/17 (one day ago). Per triage, urine is described as cloudy, concentrated, and odorous and there has been 400 cc urine in bag since 1600 one day ago (09/25). Last bowel movement was 1100 and reported as normal. Pt is described as afebrile. CT chest/abd/pel and urine culture ordered. In ED course, Pt receives fluids and Levofloxacin 500 mg ivpremix. Pt will be signed out to Dr. Sandra. - Diagnoses Provider Diagnoses: Urinary tract infection Discharge - Sign-Out/Discharge Documenting (check all that apply): Sign-Out Patient Signing out patient TO: Wai Sandra - Discharge Plan Condition: Stable Disposition: HOME Prescriptions: Levofloxacin TAB* [Levaquin TAB*] 500 mg PO DAILY #9 tab Patient Education Materials: Urinary Tract Infection in Men (ED) Referrals: Arpit Sheth MD [Primary Care Provider] - 3 Days Additional Instructions: Follow up with Dr. Sheth, your primary care provider, in 3 days. Return to the Emergency Department for new or worsening symptoms. The documentation as recorded by the Gamaliel pineda Jacob accurately reflects the service I personally performed and the decisions made by me, Dolores Ellis MD.
== END 2017-09-26 12:53 | disposition home or self-care (01) ==
LOC: ED 04:33
DX: N39.0 Urinary tract infection, site not specified (principal)
CPT/HCPCS: 36415; 71260; 74177; 80053; 81003; 81015; 82150; 83605; 83690; 83735; 85025; 85610; 85730; 86140; 87086; 96365; 99284; J1956; Q9967

== ENCOUNTER 2022-02-16 11:19 | Inpatient (IN) ==
[2022-02-16] MEDS ORDERED: NORMOSOL R PH IV ONE (13:07)
[2022-02-16] MEDS ORDERED: Piperacillin/Tazobac ADVAN 3.375 GM in NS 0.9% 100 ml BAG 100 ML IVPB ONE (13:07)
[2022-02-16] MEDS ORDERED: cefTRIAXone VIAL 1,000 MG VIAL IM ONE (14:10)
[2022-02-16 15:06] LABS: ABS Basophils 0.1 10^3/ul (0-0.2); ABS Lymphocytes 2.2 10^3/ul (1.0-4.8); ABS Monocytes 1.3 10^3/ul (0-0.8); ABS Neutrophils 2.2 10^3/ul (1.5-7.7); Eosinophil % 14.4 %; Hematocrit 44 % (42-52); Hemoglobin 14.9 g/dL (14.0-18.0); Lymphocyte % 32.4 %; Mean Corpuscular HGB Conc 34 g/dL (31-36); Mean Corpuscular Hemoglobin 30 pg (27-31); Mean Corpuscular Volume 88 fL (80-94); Mean Platelet Volume 8.2 fL (7.4-10.4); Nucleated Red Blood Cells % 0.1; Platelet Count 245 10^3/uL (150-450); Red Cell Distribution Width 13 % (10-15); White Blood Count 6.7 10^3/uL (3.5-10.8)
[2022-02-16 15:14] LABS: Activated Partial Thrombo Time 31.2 seconds (26.0-38.0); INR 1.17 (0.89-1.11)
[2022-02-16 15:30] LABS: High Sens Troponin Baseline < 3 pg/mL (<20)
[2022-02-16 15:42] LABS: ALT 26 U/L (7-52); AST 20 U/L (13-39); Albumin 3.9 g/dL (3.2-5.2); Alkaline Phosphatase 95 U/L (35-149); Anion Gap 6 mmol/L (2-11); Blood Urea Nitrogen 7 mg/dL (6-24); C Reactive Protein 106.91 mg/L (<8.01); CO2 Carbon Dioxide 29 mmol/L (22-32); Calcium 9.4 mg/dL (8.6-10.3); Chloride 99 mmol/L (101-111); Globulin 3.8 g/dL (2-4); Glucose 100 mg/dL (70-100); Sodium 134 mmol/L (135-145); Total Protein 7.7 g/dL (6.4-8.9); eGFR CKD-EPI 135.8 (>60)
[2022-02-16 16:13] LABS: Urine Appearance Turbid; Urine Bilirubin Negative (Negative); Urine Blood Negative (Negative); Urine Color Yellow; Urine Glucose Negative (Negative); Urine Ketones Negative (Negative); Urine Nitrite Negative (Negative); Urine Protein 1+(30 mg/dL) (Negative); Urine Specific Gravity 1.028 (1.002-1.030); Urine Urobilinogen Negative (Negative)
[2022-02-16 16:27] LABS: Urine Bacteria 1+ (Absent); Urine Red Blood Cell 3+(>10/hpf) (Absent); Urine Squamous Epithelial Cell Present (Absent); Urine Transitional Epithelial Present (Absent); Urine White Blood Cell 3+(>20/hpf) (Absent)
[2022-02-16 16:38] LABS: High Sensitivity Troponin 1 Hr < 3 pg/mL (<20)
[2022-02-16] MEDS ORDERED: Iohexol 350 (CONTRAST) 500 ML MDV IV ONE (17:28)
[2022-02-16] MEDS ORDERED: Ibuprofen ADULT LIQ 600 MG/30 ML UDC G TUBE PRN (21:14)
[2022-02-16] MEDS ORDERED: Acetaminophen PED 160 mg/5 ml UDC G TUBE PRN (21:14)
[2022-02-16] MEDS ORDERED: Albuterol 2.5mg/3 ml (0.083%) NEB.SOLN INH PRN (21:14)
[2022-02-16] MEDS ORDERED: Polyethylene Glycol 3350 17 GM PACKET G TUBE PRN (21:19)
[2022-02-16] MEDS ORDERED: Lactated Ringers 1000 ml BAG 1,000 ML IV ONE ×2 (21:23→22:17)
[2022-02-16] MEDS ORDERED: Zosyn per Pharmacy NOTE FOLLOW UP SCH (22:00)
[2022-02-16] MEDS ORDERED: Albuterol/Ipratropium NEB.SOL (2.5/0.5 MG) 3 ML NEB.SOLN INH ONE (22:16)
[2022-02-16] MEDS: PHENobarbital LIQ 30 MG/7.5 ML UDC PEG TUBE SCH (22:22)
[2022-02-16] MEDS: ZOSYN 3.375 GM x ONE DOSE over 30 miuntes IV (22:48)
[2022-02-16] MEDS: Lansoprazole SUSP ORALSYR 3 MG/ML G TUBE SCH ×2 (22:59→23:00)
[2022-02-16] MEDS: Docusate LIQ 100 MG/10 ML UDC G TUBE SCH (23:00)
[2022-02-16] MEDS: Enoxaparin 40 MG/0.4 ML SYR SUBCUT SCH (23:00)
[2022-02-17] MEDS: ZOSYN 3.375 GM x ONE DOSE over 30 miuntes IV (00:11)
[2022-02-17] MEDS: ZOSYN 3.375 GM Q8H per EXTENDED INFUSION IV SCH ×2 (04:43→05:12)
[2022-02-17 05:14] LABS: ABS Basophils 0.1 10^3/ul (0-0.2); ABS Eosinophils 0.8 10^3/ul (0-0.6); ABS Lymphocytes 1.9 10^3/ul (1.0-4.8); ABS Monocytes 1.5 10^3/ul (0-0.8); ABS Neutrophils 4.6 10^3/ul (1.5-7.7); Eosinophil % 9.5 %; Hematocrit 39 % (42-52); Hemoglobin 13.3 g/dL (14.0-18.0); Lymphocyte % 21.1 %; Mean Corpuscular HGB Conc 34 g/dL (31-36); Mean Corpuscular Hemoglobin 30 pg (27-31); Mean Corpuscular Volume 89 fL (80-94); Mean Platelet Volume 7.6 fL (7.4-10.4); Platelet Count 237 10^3/uL (150-450); Red Blood Count 4.44 10^6 /uL (4.18-5.48); Red Cell Distribution Width 13 % (10-15); White Blood Count 8.8 10^3/uL (3.5-10.8)
[2022-02-17 05:35] LABS: Calcium 8.2 mg/dL (8.6-10.3); eGFR CKD-EPI 135.8 (>60)
[2022-02-17] MEDS ORDERED: NS 0.9% 1000 ml BAG 1,000 ML IV SCH (05:45)
[2022-02-17] MEDS: Docusate LIQ 100 MG/10 ML UDC G TUBE SCH ×2 (08:51→20:26)
[2022-02-17] MEDS: PHENobarbital LIQ 30 MG/7.5 ML UDC PEG TUBE SCH ×2 (08:54→20:28)
[2022-02-17] MEDS: Lansoprazole SUSP ORALSYR 3 MG/ML G TUBE SCH ×2 (09:02→20:33)
[2022-02-17] MEDS: Mupirocin 2% OINT TUBE TOPICAL SCH ×2 (09:35→20:29)
[2022-02-17] MEDS: Budesonide NEB 0.5 MG/2 ML NEB.SOLN INH SCH ×2 (09:36→19:09)
[2022-02-17] MEDS ORDERED: Dextran 70/Hypromellose Tears Eye Drops 15 ml BTL (for Artificials Tears) BOTH EYES PRN (11:15)
[2022-02-17] MEDS: cefTRIAXone 1 gm/50 mL D5W 1 GM/50 ML BAG IV SCH (13:28)
[2022-02-17 17:44] LABS: TSH Ultra Thyroid Stim Horm 1.02 mcIU/mL (0.34-5.60)
[2022-02-17 17:46] LABS: Free T4 1.17 ng/dL (0.61-1.12)
[2022-02-17] MEDS: Enoxaparin 40 MG/0.4 ML SYR SUBCUT SCH (20:26)
[2022-02-18 05:48] LABS: ABS Basophils 0.1 10^3/ul (0-0.2); ABS Eosinophils 1.2 10^3/ul (0-0.6); ABS Lymphocytes 1.9 10^3/ul (1.0-4.8); ABS Monocytes 0.9 10^3/ul (0-0.8); Eosinophil % 20.4 %; Hematocrit 44 % (42-52); Lymphocyte % 31.3 %; Mean Corpuscular HGB Conc 34 g/dL (31-36); Mean Corpuscular Hemoglobin 31 pg (27-31); Mean Corpuscular Volume 90 fL (80-94); Mean Platelet Volume 8.4 fL (7.4-10.4); Nucleated Red Blood Cells % 0.1; Platelet Count 246 10^3/uL (150-450); Red Blood Count 4.86 10^6 /uL (4.18-5.48); Red Cell Distribution Width 13 % (10-15)
[2022-02-18 06:02] LABS: Calcium 9.2 mg/dL (8.6-10.3); Potassium 4.5 mmol/L (3.5-5.0); eGFR CKD-EPI 132.2 (>60)
[2022-02-18] MEDS: Budesonide NEB 0.5 MG/2 ML NEB.SOLN INH SCH (07:01)
[2022-02-18] MEDS: Docusate LIQ 100 MG/10 ML UDC G TUBE SCH (08:22)
[2022-02-18] MEDS: Lansoprazole SUSP ORALSYR 3 MG/ML G TUBE SCH (08:26)
[2022-02-18] MEDS: PHENobarbital LIQ 30 MG/7.5 ML UDC PEG TUBE SCH (08:26)
[2022-02-18] MEDS: Mupirocin 2% OINT TUBE TOPICAL SCH (08:37)
[2022-02-18 11:33] VITALS: BP 118/82
[2022-02-18] MEDS: cefTRIAXone 1 gm/50 mL D5W 1 GM/50 ML BAG IV SCH (12:44)
== END 2022-02-18 17:11 | disposition home or self-care (01) | DRG 871 ==
LOC: ED 11:19 → EDHOLD 20:49 → SUATTDRO 20:49 → EDHOLD 02-17 13:53 → MEDTELE 02-17 14:56
PROVIDERS: ADMIT Student in an Organized Health Care Education/Training Program; ATTEND Internal Medicine

== ENCOUNTER 2022-05-11 14:28 | Observation (INO) ==
[2022-05-11 15:15] LABS: Urine Appearance Turbid; Urine Bilirubin Negative (Negative); Urine Blood 1+ (Negative); Urine Color Yellow; Urine Glucose Negative (Negative); Urine Ketones Negative (Negative); Urine Nitrite Negative (Negative); Urine Protein 1+(30 mg/dL) (Negative); Urine Specific Gravity 1.009 (1.002-1.030); Urine Urobilinogen Negative (Negative)
[2022-05-11 15:33] LABS: Urine Bacteria 2+ (Absent); Urine Red Blood Cell 2+(6-10/hpf) (Absent); Urine White Blood Cell 3+(>20/hpf) (Absent)
[2022-05-11 16:08] LABS: ABS Basophils 0.1 10^3/ul (0-0.2); ABS Eosinophils 1.2 10^3/ul (0-0.6); ABS Lymphocytes 2.5 10^3/ul (1.0-4.8); ABS Monocytes 0.8 10^3/ul (0-0.8); ABS Neutrophils 3.8 10^3/ul (1.5-7.7); Eosinophil % 14.1 %; Hematocrit 48 % (42-52); Hemoglobin 16.1 g/dL (14.0-18.0); Lymphocyte % 29.6 %; Mean Corpuscular HGB Conc 33 g/dL (31-36); Mean Corpuscular Hemoglobin 30 pg (27-31); Mean Corpuscular Volume 89 fL (80-94); Platelet Count 226 10^3/uL (150-450); Red Blood Count 5.41 10^6 /uL (4.18-5.48); Red Cell Distribution Width 13 % (10-15); White Blood Count 8.3 10^3/uL (3.5-10.8)
[2022-05-11 16:43] LABS: Albumin 3.8 g/dL (3.2-5.2); C Reactive Protein 8.3 mg/L (<8.01); Calcium 9.1 mg/dL (8.6-10.3); Creatinine, Serum 0.55 mg/dL (0.67-1.17); Globulin 3.9 g/dL (2-4); Total Bilirubin 0.4 mg/dL (0.2-1.0); Total Protein 7.7 g/dL (6.4-8.9)
[2022-05-11 16:44] LABS: Potassium 4.1 mmol/L (3.5-5.0)
[2022-05-11 17:09] LABS: INR 1.23 (0.88-1.18)
[2022-05-11] MEDS ORDERED: Albuterol 2.5mg/3 ml (0.083%) NEB.SOLN INH PRN (17:21)
[2022-05-11] MEDS ORDERED: Acetaminophen PED 160 mg/5 ml UDC G TUBE PRN (17:21)
[2022-05-11] MEDS ORDERED: Heparin 5000 UNITS/ML 1 mL VIAL SUBCUT ONE (17:26)
[2022-05-11] MEDS ORDERED: NS 0.9% 1000 ml BAG 1,000 ML IV SCH ×2 (17:30→17:37)
[2022-05-11 17:41] LABS: Urine Appearance Turbid; Urine Bilirubin Negative (Negative); Urine Blood 3+ (Negative); Urine Color Yellow; Urine Glucose Negative (Negative); Urine Ketones Negative (Negative); Urine Nitrite Negative (Negative); Urine Protein 1+(30 mg/dL) (Negative); Urine Specific Gravity 1.012 (1.002-1.030); Urine Urobilinogen Negative (Negative)
[2022-05-11 17:45] LABS: Urine Bacteria 1+ (Absent); Urine Red Blood Cell 3+(>10/hpf) (Absent); Urine Squamous Epithelial Cell Present (Absent); Urine White Blood Cell 3+(>20/hpf) (Absent)
[2022-05-11 18:21] LABS: High Sensitivity Troponin 1 Hr < 3 pg/mL (<20)
[2022-05-11] MEDS: Budesonide NEB 0.5 MG/2 ML NEB.SOLN INH SCH (19:27)
[2022-05-11] MEDS ORDERED: PHENobarbital LIQ 30 MG/7.5 ML UDC PEG TUBE SCH (21:00)
[2022-05-11] MEDS: PHENobarbital LIQ 30 MG/7.5 ML UDC PEG TUBE SCH (21:42)
[2022-05-12] MEDS: Budesonide NEB 0.5 MG/2 ML NEB.SOLN INH SCH (06:46)
[2022-05-12 06:52] LABS: Calcium 8.9 mg/dL (8.6-10.3); Potassium 4.5 mmol/L (3.5-5.0)
[2022-05-12 06:57] LABS: Creatinine, Serum 0.71 mg/dL (0.67-1.17)
[2022-05-12] MEDS ORDERED: fentaNYL 100 mcg/2 ml 50 MCG/ML VIAL IV PRN (07:26)
[2022-05-12] MEDS ORDERED: Naloxone 0.4 mg VIAL 0.4 mg/ml 1 ml VIAL IV PRN (07:26)
[2022-05-12] MEDS ORDERED: Influenza vaccine *QUAD* *2022-23* 0.5 ML SYRINGE IM ONE (09:00)
[2022-05-12] MEDS ORDERED: Lansoprazole SUSP ORALSYR 3 MG/ML G TUBE SCH (09:00)
[2022-05-12] MEDS: PHENobarbital LIQ 30 MG/7.5 ML UDC PEG TUBE SCH (12:11)
[2022-05-12 13:44] VITALS: BP 109/69
[2022-05-12 14:48] LABS: ABS Basophils 0.1 10^3/ul (0-0.2); ABS Lymphocytes 1.4 10^3/ul (1.0-4.8); ABS Neutrophils 5.8 10^3/ul (1.5-7.7); Eosinophil % 10.9 %; Hematocrit 46 % (42-52); Hemoglobin 15.6 g/dL (14.0-18.0); Lymphocyte % 15.6 %; Mean Corpuscular HGB Conc 34 g/dL (31-36); Mean Corpuscular Hemoglobin 30 pg (27-31); Mean Corpuscular Volume 88 fL (80-94); Mean Platelet Volume 8.8 fL (7.4-10.4); Nucleated Red Blood Cells % 0.1; Platelet Count 212 10^3/uL (150-450); Red Blood Count 5.25 10^6 /uL (4.18-5.48); Red Cell Distribution Width 13 % (10-15); White Blood Count 9.3 10^3/uL (3.5-10.8)
== END 2022-05-12 16:45 | disposition home or self-care (01) ==
LOC: ED 14:28 → EDHOLD 14:28 → SSU 18:23
PROVIDERS: ADMIT Internal Medicine; ATTEND Internal Medicine

== ENCOUNTER 2022-09-24 05:02 | Inpatient (IN) ==
[2022-09-24] MEDS ORDERED: methylPREDNISolone SOD SUCC 125 mg 2 ML VIAL IV ONE (05:14)
[2022-09-24 05:48] LABS: Hematocrit 46.9 % (38-53); Hemoglobin 16.2 g/dL (13.2-16.3); Mean Corpuscular Hemoglobin 30.7 pg (27-33); Mean Corpuscular Hgb Conc 34.6 g/dL (31-36); Mean Corpuscular Volume 88.7 fL (80-97); Mean Platelet Volume 8.2 fL (7.5-11.2); Platelet Count 243 10^3/uL (150-450); Red Blood Count 5.29 10^6/uL (4.06-5.63); White Blood Count 13.9 10^3/uL (3.6-10.2)
[2022-09-24] MEDS ORDERED: Albuterol (2.5 MG) 0.5 % CONC 0.5 ML NEB.SOLN INH ONE (06:00)
[2022-09-24 06:06] LABS: ABS Eosinophils 1.4 10^3/uL (0.0-0.5); ABS Lymphocytes 1.5 10^3/uL (1.0-4.8); ABS Monocytes 1.6 10^3/uL (0.0-1.1); ABS Neutrophils 9.4 10^3/uL (1.5-7.6); ABS Nucleated RBC 0.01 10^3/ul; Albumin 3.9 g/dL (3.2-5.2); C Reactive Protein 20.88 mg/L (<8.01); Calcium 9.1 mg/dL (8.6-10.3); Creatinine, Serum 0.57 mg/dL (0.67-1.17); Eosinophil % 9.8 %; Globulin 4.1 g/dL (2-4); Lymphocyte % 10.7 %; Nucleated Red Blood Cells % 0.1 /100 WBC (0.0-0.4); Potassium 4.1 mmol/L (3.5-5.0); Total Bilirubin 0.3 mg/dL (0.2-1.0); eGFR CKD-EPI 133.6 (>60)
[2022-09-24] MEDS ORDERED: Azithromycin 500 mg/250 ml NS 500 MG/250 ML BAG IVPB ONE (06:22)
[2022-09-24] MEDS ORDERED: cefTRIAXone 1 gm/50 mL D5W 1 GM/50 ML BAG IV ONE (06:22)
[2022-09-24] MEDS ORDERED: PHENobarbital LIQ 30 MG/7.5 ML UDC PO ONE (08:14)
[2022-09-24] MEDS ORDERED: Acetaminophen PED 160 mg/5 ml UDC G TUBE PRN (10:31)
[2022-09-24] MEDS ORDERED: Ibuprofen ADULT LIQ 600 MG/30 ML UDC G TUBE PRN (10:31)
[2022-09-24] MEDS ORDERED: Ibuprofen PED LIQ 100 MG/5 ML UDC G TUBE PRN ×2 (11:00→14:00)
[2022-09-24] MEDS: Docusate LIQ 100 MG/10 ML UDC G TUBE SCH ×2 (11:38→22:02)
[2022-09-24] MEDS: Enoxaparin 40 MG/0.4 ML SYR SUBCUT SCH (11:39)
[2022-09-24] MEDS ORDERED: [UNRECOGNIZED DRUG - OTHER] PO SCH (12:00)
[2022-09-24] MEDS ORDERED: Cetirizine 5 mg CHEW TAB SCH (12:00)
[2022-09-24] MEDS ORDERED: FEXOFENADINE PO SCH (12:00)
[2022-09-24] MEDS ORDERED: PSEUDOEPHEDRINE PO SCH (12:00)
[2022-09-24 13:42] LABS: Urine Appearance Turbid; Urine Bilirubin Negative (Negative); Urine Blood Negative (Negative); Urine Color Amber; Urine Glucose Negative (Negative); Urine Ketones Negative (Negative); Urine Nitrite Positive (Negative); Urine Protein 2+(100 mg/dL) (Negative); Urine Specific Gravity 1.018 (1.002-1.030); Urine Urobilinogen Negative (Negative)
[2022-09-24 13:52] LABS: Urine Bacteria 1+ (Absent); Urine Red Blood Cell Absent (Absent); Urine White Blood Cell 3+(>20/hpf) (Absent)
[2022-09-24] MEDS: Budesonide NEB 0.5 MG/2 ML NEB.SOLN INH SCH ×2 (13:57→19:59)
[2022-09-24] MEDS: Albuterol 2.5mg/3 ml (0.083%) NEB.SOLN INH SCH ×2 (13:58→19:59)
[2022-09-24] MEDS: CETIRIZINE 5 MG/5 ML SCH (14:12)
[2022-09-24] MEDS: D5W 1/2 NS 1000 ml BAG 1,000 ML IV SCH (14:12)
[2022-09-24] MEDS ORDERED: PHENobarbital LIQ 30 MG/7.5 ML UDC PEG TUBE SCH (21:00)
[2022-09-24] MEDS: Pantoprazole VIAL 40 MG VIAL IV SCH (22:03)
[2022-09-24] MEDS: PHENobarbital LIQ 30 MG/7.5 ML UDC PEG TUBE SCH (22:44)
[2022-09-25] MEDS ORDERED: Lidocaine 4% GEL 10 GM TUBE TOPICAL ONE (03:01)
[2022-09-25] MEDS: D5W 1/2 NS 1000 ml BAG 1,000 ML IV SCH (03:31)
[2022-09-25] MEDS ORDERED: cefTRIAXone 1 gm/50 mL D5W 1 GM/50 ML BAG IV SCH (06:00)
[2022-09-25 06:23] LABS: ABS Basophils 0.1 10^3/uL (0.0-0.1); ABS Eosinophils 0.3 10^3/uL (0.0-0.5); ABS Lymphocytes 2.8 10^3/uL (1.0-4.8); ABS Monocytes 2.1 10^3/uL (0.0-1.1); ABS Neutrophils 7.6 10^3/uL (1.5-7.6); ABS Nucleated RBC 0.02 10^3/ul; Eosinophil % 2.2 %; Hematocrit 44.3 % (38-53); Hemoglobin 16.4 g/dL (13.2-16.3); Lymphocyte % 21.8 %; Mean Corpuscular Hemoglobin 32.7 pg (27-33); Mean Corpuscular Volume 88.6 fL (80-97); Nucleated Red Blood Cells % 0.1 /100 WBC (0.0-0.4); Platelet Count 200 10^3/uL (150-450); Red Cell Distribution Width 13.6 % (12-17); White Blood Count 12.7 10^3/uL (3.6-10.2)
[2022-09-25 06:24] LABS: CO2 Carbon Dioxide 25 mmol/L (22-32); Chloride 104 mmol/L (101-111); Sodium 136 mmol/L (135-145)
[2022-09-25 06:27] LABS: Anion Gap 7 mmol/L (2-16)
[2022-09-25 06:29] LABS: Blood Urea Nitrogen 6 mg/dL (6-24); Creatinine, Serum 0.48 mg/dL (0.67-1.17); Glucose 113 mg/dL (70-100); eGFR CKD-EPI 140.7 (>60)
[2022-09-25] MEDS: Azithromycin 500 mg/250 ml NS 500 MG/250 ML BAG IVPB SCH (06:35)
[2022-09-25] MEDS: Albuterol 2.5mg/3 ml (0.083%) NEB.SOLN INH SCH ×2 (07:10→19:05)
[2022-09-25] MEDS: Budesonide NEB 0.5 MG/2 ML NEB.SOLN INH SCH ×2 (07:10→19:05)
[2022-09-25] MEDS ORDERED: D5W 1/2 NS 1000 ml BAG 1,000 ML IV SCH (09:08)
[2022-09-25] MEDS ORDERED: Cefepime ADVAN 1 GM in NS 0.9% 50 ML 50 ML IVPB SCH (10:00)
[2022-09-25] MEDS ORDERED: Piperacillin/Tazobac ADVAN 3.375 GM in NS 0.9% 100 ml BAG 100 ML IV ONE (10:06)
[2022-09-25] MEDS ORDERED: Zosyn per Pharmacy NOTE FOLLOW UP SCH (11:00)
[2022-09-25] MEDS: PHENobarbital LIQ 30 MG/7.5 ML UDC PEG TUBE SCH ×2 (11:38→22:51)
[2022-09-25] MEDS: Enoxaparin 40 MG/0.4 ML SYR SUBCUT SCH (11:38)
[2022-09-25] MEDS: Docusate LIQ 100 MG/10 ML UDC G TUBE SCH ×2 (11:38→22:51)
[2022-09-25] MEDS: Pantoprazole VIAL 40 MG VIAL IV SCH ×2 (11:39→23:34)
[2022-09-25] MEDS: CETIRIZINE 5 MG/5 ML SCH (11:44)
[2022-09-25 12:28] LABS: Potassium, Whole Blood 1.7 mmol/L (3.4-4.5)
[2022-09-25] MEDS ORDERED: Potassium Chloride LIQUID 20 MEQ/15 ML LIQUID PO ONE (12:30)
[2022-09-25] MEDS ORDERED: KCL 10 MEQ/50 ML IVPREMIX 10 MEQ/50 ML BAG IV ONE (12:51)
[2022-09-25] MEDS ORDERED: KCL 20 MEQ/100 ML IVPREMIX 20 MEQ/100 ML BAG IV SCH (13:00)
[2022-09-25 13:24] LABS: Magnesium 1.5 mg/dL (1.9-2.7)
[2022-09-25 13:30] LABS: Creatinine, Serum 0.37 mg/dL (0.67-1.17); eGFR CKD-EPI 152.2 (>60)
[2022-09-25 13:41] LABS: Calcium 6.4 mg/dL (8.6-10.3)
[2022-09-25] MEDS ORDERED: Lidocaine 1% MPF 5 ML VIAL INJ ONE (13:55)
[2022-09-25] MEDS: ZOSYN 3.375 GM Q8H per EXTENDED INFUSION IV SCH (16:46)
[2022-09-26] MEDS: ZOSYN 3.375 GM Q8H per EXTENDED INFUSION IV SCH ×3 (00:29→18:00)
[2022-09-26] MEDS: Azithromycin 500 mg/250 ml NS 500 MG/250 ML BAG IVPB SCH (06:01)
[2022-09-26] MEDS: Albuterol 2.5mg/3 ml (0.083%) NEB.SOLN INH SCH ×2 (07:04→19:25)
[2022-09-26] MEDS: Budesonide NEB 0.5 MG/2 ML NEB.SOLN INH SCH ×2 (07:05→19:25)
[2022-09-26] MEDS: PHENobarbital LIQ 30 MG/7.5 ML UDC PEG TUBE SCH ×2 (09:48→21:01)
[2022-09-26] MEDS: Docusate LIQ 100 MG/10 ML UDC G TUBE SCH ×2 (09:52→21:01)
[2022-09-26] MEDS: Pantoprazole VIAL 40 MG VIAL IV SCH ×2 (09:56→21:01)
[2022-09-26] MEDS: Enoxaparin 40 MG/0.4 ML SYR SUBCUT SCH (10:47)
[2022-09-26] MEDS: CETIRIZINE 5 MG/5 ML SCH (13:31)
[2022-09-26 15:55] LABS: Urine Appearance Cloudy; Urine Bilirubin Negative (Negative); Urine Blood Negative (Negative); Urine Color Yellow; Urine Glucose Negative (Negative); Urine Ketones Negative (Negative); Urine Nitrite Negative (Negative); Urine Protein Negative (Negative); Urine Urobilinogen Negative (Negative)
[2022-09-26 15:57] LABS: Urine Bacteria 1+ (Absent); Urine Red Blood Cell 1+(3-5/hpf) (Absent); Urine Squamous Epithelial Cell Present (Absent); Urine White Blood Cell 3+(>20/hpf) (Absent)
[2022-09-26 18:04] LABS: ABS Basophils 0.1 10^3/uL (0.0-0.1); ABS Eosinophils 0.9 10^3/uL (0.0-0.5); ABS Monocytes 0.9 10^3/uL (0.0-1.1); ABS Neutrophils 6.6 10^3/uL (1.5-7.6); Eosinophil % 8.8 %; Hematocrit 45.3 % (38-53); Hemoglobin 15.8 g/dL (13.2-16.3); Lymphocyte % 18.9 %; Mean Corpuscular Hgb Conc 34.8 g/dL (31-36); Mean Corpuscular Volume 89.2 fL (80-97); Mean Platelet Volume 8.4 fL (7.5-11.2); Platelet Count 230 10^3/uL (150-450); Red Blood Count 5.08 10^6/uL (4.06-5.63); Red Cell Distribution Width 13.9 % (12-17); White Blood Count 10.5 10^3/uL (3.6-10.2)
[2022-09-26 18:19] LABS: Calcium 8.9 mg/dL (8.6-10.3); Creatinine, Serum 0.63 mg/dL (0.67-1.17); Potassium 3.9 mmol/L (3.5-5.0); eGFR CKD-EPI 129.6 (>60)
[2022-09-27] MEDS: Acetaminophen PED 160 mg/5 ml UDC G TUBE PRN (00:30)
[2022-09-27] MEDS: ZOSYN 3.375 GM Q8H per EXTENDED INFUSION IV SCH ×4 (00:31→23:57)
[2022-09-27] MEDS ORDERED: LORazepam 2 mg VIAL 1 ml ONE (06:40)
[2022-09-27] MEDS: Albuterol 2.5mg/3 ml (0.083%) NEB.SOLN INH SCH ×2 (06:45→19:34)
[2022-09-27] MEDS: Budesonide NEB 0.5 MG/2 ML NEB.SOLN INH SCH ×2 (06:45→19:34)
[2022-09-27 07:11] LABS: ABS Eosinophils 1.1 10^3/uL (0.0-0.5); ABS Lymphocytes 2.2 10^3/uL (1.0-4.8); ABS Monocytes 1.1 10^3/uL (0.0-1.1); ABS Neutrophils 4.2 10^3/uL (1.5-7.6); ABS Nucleated RBC 0.01 10^3/ul; Eosinophil % 12.8 %; Hematocrit 43.6 % (38-53); Hemoglobin 15.3 g/dL (13.2-16.3); Lymphocyte % 25.7 %; Mean Corpuscular Hemoglobin 31.1 pg (27-33); Mean Corpuscular Hgb Conc 35.1 g/dL (31-36); Mean Corpuscular Volume 88.6 fL (80-97); Mean Platelet Volume 8.6 fL (7.5-11.2); Nucleated Red Blood Cells % 0.1 /100 WBC (0.0-0.4); Platelet Count 226 10^3/uL (150-450); Red Blood Count 4.91 10^6/uL (4.06-5.63); Red Cell Distribution Width 13.4 % (12-17); White Blood Count 8.7 10^3/uL (3.6-10.2)
[2022-09-27 07:26] LABS: ABS Basophils 0.1 10^3/uL (0.0-0.1); ABS Eosinophils 1.1 10^3/uL (0.0-0.5); ABS Lymphocytes 2.4 10^3/uL (1.0-4.8); ABS Neutrophils 4.2 10^3/uL (1.5-7.6); ABS Nucleated RBC 0.01 10^3/ul; Eosinophil % 12.6 %; Hematocrit 44.5 % (38-53); Hemoglobin 15.2 g/dL (13.2-16.3); Lymphocyte % 27.1 %; Mean Corpuscular Hemoglobin 30.2 pg (27-33); Mean Corpuscular Hgb Conc 34.1 g/dL (31-36); Mean Corpuscular Volume 88.5 fL (80-97); Mean Platelet Volume 8.7 fL (7.5-11.2); Nucleated Red Blood Cells % 0.1 /100 WBC (0.0-0.4); Platelet Count 229 10^3/uL (150-450); Red Blood Count 5.03 10^6/uL (4.06-5.63); Red Cell Distribution Width 13.8 % (12-17); White Blood Count 8.7 10^3/uL (3.6-10.2)
[2022-09-27 08:30] LABS: Calcium 9.2 mg/dL (8.6-10.3); Potassium 4.1 mmol/L (3.5-5.0)
[2022-09-27 08:35] LABS: C Reactive Protein 20.2 mg/L (<8.01); Creatinine, Serum 0.67 mg/dL (0.67-1.17); eGFR CKD-EPI 127.2 (>60)
[2022-09-27] MEDS: PHENobarbital LIQ 30 MG/7.5 ML UDC PEG TUBE SCH ×2 (09:04→21:02)
[2022-09-27] MEDS: Docusate LIQ 100 MG/10 ML UDC G TUBE SCH ×2 (09:05→21:00)
[2022-09-27] MEDS: Pantoprazole VIAL 40 MG VIAL IV SCH ×2 (09:05→21:05)
[2022-09-27] MEDS: Polyethylene Glycol 3350 17 GM PACKET G TUBE PRN (09:06)
[2022-09-27] MEDS: Enoxaparin 40 MG/0.4 ML SYR SUBCUT SCH (12:39)
[2022-09-27] MEDS: CETIRIZINE 5 MG/5 ML SCH (12:39)
[2022-09-28] MEDS: Albuterol 2.5mg/3 ml (0.083%) NEB.SOLN INH SCH ×2 (07:05→18:59)
[2022-09-28] MEDS: Budesonide NEB 0.5 MG/2 ML NEB.SOLN INH SCH ×2 (07:05→18:59)
[2022-09-28 07:39] LABS: C Reactive Protein 23.78 mg/L (<8.01); Calcium 9.1 mg/dL (8.6-10.3); Creatinine, Serum 0.63 mg/dL (0.67-1.17); Potassium 3.8 mmol/L (3.5-5.0); eGFR CKD-EPI 129.6 (>60)
[2022-09-28] MEDS: ZOSYN 3.375 GM Q8H per EXTENDED INFUSION IV SCH ×3 (08:20→23:06)
[2022-09-28] MEDS: PHENobarbital LIQ 30 MG/7.5 ML UDC PEG TUBE SCH ×2 (09:41→21:40)
[2022-09-28] MEDS: Docusate LIQ 100 MG/10 ML UDC G TUBE SCH ×2 (09:41→21:38)
[2022-09-28] MEDS: Pantoprazole VIAL 40 MG VIAL IV SCH ×2 (09:47→21:38)
[2022-09-28] MEDS: Enoxaparin 40 MG/0.4 ML SYR SUBCUT SCH (10:51)
[2022-09-28 11:32] LABS: ABS Eosinophils 0.9 10^3/uL (0.0-0.5); ABS Lymphocytes 1.7 10^3/uL (1.0-4.8); ABS Monocytes 0.9 10^3/uL (0.0-1.1); ABS Neutrophils 5.3 10^3/uL (1.5-7.6); ABS Nucleated RBC 0.01 10^3/ul; Eosinophil % 10.6 %; Hematocrit 42.1 % (38-53); Hemoglobin 14.6 g/dL (13.2-16.3); Lymphocyte % 18.9 %; Mean Corpuscular Hemoglobin 30.4 pg (27-33); Mean Corpuscular Hgb Conc 34.7 g/dL (31-36); Mean Corpuscular Volume 87.6 fL (80-97); Mean Platelet Volume 8.3 fL (7.5-11.2); Nucleated Red Blood Cells % 0.1 /100 WBC (0.0-0.4); Platelet Count 218 10^3/uL (150-450); Red Cell Distribution Width 13.4 % (12-17); White Blood Count 8.8 10^3/uL (3.6-10.2)
[2022-09-28] MEDS: Polyethylene Glycol 3350 17 GM PACKET G TUBE PRN (12:29)
[2022-09-28] MEDS: Acetaminophen PED 160 mg/5 ml UDC G TUBE PRN (12:29)
[2022-09-28] MEDS: CETIRIZINE 5 MG/5 ML SCH (12:31)
[2022-09-29 06:25] LABS: ABS Basophils 0.1 10^3/uL (0.0-0.1); ABS Eosinophils 1.4 10^3/uL (0.0-0.5); ABS Lymphocytes 1.5 10^3/uL (1.0-4.8); ABS Monocytes 0.9 10^3/uL (0.0-1.1); ABS Neutrophils 5.4 10^3/uL (1.5-7.6); Eosinophil % 15.2 %; Hematocrit 39.9 % (38-53); Hemoglobin 13.9 g/dL (13.2-16.3); Lymphocyte % 16.5 %; Mean Corpuscular Hemoglobin 30.7 pg (27-33); Mean Corpuscular Hgb Conc 34.8 g/dL (31-36); Mean Corpuscular Volume 88.2 fL (80-97); Mean Platelet Volume 8.1 fL (7.5-11.2); Platelet Count 199 10^3/uL (150-450); Red Blood Count 4.53 10^6/uL (4.06-5.63); Red Cell Distribution Width 13.6 % (12-17); White Blood Count 9.3 10^3/uL (3.6-10.2)
[2022-09-29] MEDS: ZOSYN 3.375 GM Q8H per EXTENDED INFUSION IV SCH (06:36)
[2022-09-29 06:44] LABS: Calcium 8.9 mg/dL (8.6-10.3); Creatinine, Serum 0.61 mg/dL (0.67-1.17); eGFR CKD-EPI 130.9 (>60)
[2022-09-29] MEDS: Budesonide NEB 0.5 MG/2 ML NEB.SOLN INH SCH ×2 (07:04→19:06)
[2022-09-29] MEDS: Albuterol 2.5mg/3 ml (0.083%) NEB.SOLN INH SCH ×2 (07:04→19:06)
[2022-09-29] MEDS: PHENobarbital LIQ 30 MG/7.5 ML UDC PEG TUBE SCH ×2 (09:39→21:54)
[2022-09-29] MEDS: Pantoprazole VIAL 40 MG VIAL IV SCH ×2 (09:42→21:55)
[2022-09-29] MEDS: Docusate LIQ 100 MG/10 ML UDC G TUBE SCH ×2 (09:42→21:54)
[2022-09-29] MEDS: Polyethylene Glycol 3350 17 GM PACKET G TUBE PRN (09:49)
[2022-09-29] MEDS: Enoxaparin 40 MG/0.4 ML SYR SUBCUT SCH (12:43)
[2022-09-29] MEDS: CETIRIZINE 5 MG/5 ML SCH (12:43)
[2022-09-29] MEDS ORDERED: Heparin DRIP 25,000 UNITS BAG 25,000 UNITS/500 ML BAG IV SCH (16:45)
[2022-09-29] MEDS ORDERED: Heparin 5000 UNITS/ML 1 mL VIAL IV SCH (17:00)
[2022-09-29 17:19] LABS: ABS Basophils 0.1 10^3/uL (0.0-0.1); ABS Eosinophils 1.4 10^3/uL (0.0-0.5); ABS Lymphocytes 1.8 10^3/uL (1.0-4.8); ABS Monocytes 0.9 10^3/uL (0.0-1.1); ABS Neutrophils 5.1 10^3/uL (1.5-7.6); ABS Nucleated RBC 0.01 10^3/ul; Eosinophil % 15.1 %; Hematocrit 41.6 % (38-53); Hemoglobin 14.1 g/dL (13.2-16.3); Lymphocyte % 19.1 %; Mean Corpuscular Volume 88.3 fL (80-97); Mean Platelet Volume 8.1 fL (7.5-11.2); Nucleated Red Blood Cells % 0.1 /100 WBC (0.0-0.4); Platelet Count 211 10^3/uL (150-450); Red Blood Count 4.71 10^6/uL (4.06-5.63); Red Cell Distribution Width 13.6 % (12-17); White Blood Count 9.2 10^3/uL (3.6-10.2)
[2022-09-29] MEDS: Acetaminophen PED 160 mg/5 ml UDC G TUBE PRN (17:31)
[2022-09-29 17:49] LABS: Creatinine, Serum 0.63 mg/dL (0.67-1.17); eGFR CKD-EPI 129.6 (>60)
[2022-09-30 05:36] LABS: ABS Basophils 0.1 10^3/uL (0.0-0.1); ABS Eosinophils 1.6 10^3/uL (0.0-0.5); ABS Monocytes 1.2 10^3/uL (0.0-1.1); ABS Neutrophils 6.2 10^3/uL (1.5-7.6); Eosinophil % 14.8 %; Hematocrit 39.6 % (38-53); Hemoglobin 13.5 g/dL (13.2-16.3); Lymphocyte % 18.2 %; Mean Corpuscular Hemoglobin 30.5 pg (27-33); Mean Corpuscular Hgb Conc 34.1 g/dL (31-36); Mean Corpuscular Volume 89.6 fL (80-97); Mean Platelet Volume 8.2 fL (7.5-11.2); Platelet Count 201 10^3/uL (150-450); Red Blood Count 4.42 10^6/uL (4.06-5.63); Red Cell Distribution Width 13.6 % (12-17)
[2022-09-30] MEDS: Albuterol 2.5mg/3 ml (0.083%) NEB.SOLN INH SCH ×2 (07:00→19:02)
[2022-09-30] MEDS: Budesonide NEB 0.5 MG/2 ML NEB.SOLN INH SCH ×2 (07:00→19:02)
[2022-09-30] MEDS: Docusate LIQ 100 MG/10 ML UDC G TUBE SCH ×2 (08:42→21:27)
[2022-09-30] MEDS: PHENobarbital LIQ 30 MG/7.5 ML UDC PEG TUBE SCH ×2 (08:42→21:27)
[2022-09-30] MEDS: Pantoprazole VIAL 40 MG VIAL IV SCH ×2 (08:50→21:28)
[2022-09-30] MEDS: CETIRIZINE 5 MG/5 ML SCH (12:04)
[2022-09-30] MEDS ORDERED: Iohexol 350 (CONTRAST) 500 ML MDV IV ONE (16:45)
[2022-09-30] MEDS: Enoxaparin 60 MG/0.6 ML SYR SUBCUT SCH (17:11)
[2022-10-01] MEDS: Enoxaparin 60 MG/0.6 ML SYR SUBCUT SCH ×2 (05:26→16:07)
[2022-10-01 05:46] LABS: ABS Basophils 0.1 10^3/uL (0.0-0.1); ABS Eosinophils 1.4 10^3/uL (0.0-0.5); ABS Lymphocytes 1.8 10^3/uL (1.0-4.8); ABS Neutrophils 5.1 10^3/uL (1.5-7.6); Eosinophil % 15.1 %; Hematocrit 39.1 % (38-53); Hemoglobin 13.5 g/dL (13.2-16.3); Lymphocyte % 19.1 %; Mean Corpuscular Hemoglobin 30.2 pg (27-33); Mean Corpuscular Hgb Conc 34.4 g/dL (31-36); Mean Corpuscular Volume 87.9 fL (80-97); Mean Platelet Volume 8.3 fL (7.5-11.2); Platelet Count 195 10^3/uL (150-450); Red Blood Count 4.45 10^6/uL (4.06-5.63); Red Cell Distribution Width 13.1 % (12-17); White Blood Count 9.4 10^3/uL (3.6-10.2)
[2022-10-01 06:08] LABS: Calcium 9.2 mg/dL (8.6-10.3); Creatinine, Serum 0.57 mg/dL (0.67-1.17); Potassium 3.7 mmol/L (3.5-5.0); eGFR CKD-EPI 133.6 (>60)
[2022-10-01] MEDS: Albuterol 2.5mg/3 ml (0.083%) NEB.SOLN INH SCH ×2 (07:40→19:09)
[2022-10-01] MEDS: Budesonide NEB 0.5 MG/2 ML NEB.SOLN INH SCH ×2 (07:40→19:09)
[2022-10-01] MEDS: Pantoprazole VIAL 40 MG VIAL IV SCH ×2 (09:59→20:52)
[2022-10-01] MEDS: Docusate LIQ 100 MG/10 ML UDC G TUBE SCH ×2 (09:59→20:46)
[2022-10-01] MEDS: PHENobarbital LIQ 30 MG/7.5 ML UDC PEG TUBE SCH ×2 (10:00→20:45)
[2022-10-01] MEDS: CETIRIZINE 5 MG/5 ML SCH (12:05)
[2022-10-02] MEDS: Enoxaparin 60 MG/0.6 ML SYR SUBCUT SCH ×2 (05:40→17:26)
[2022-10-02 06:09] LABS: ABS Eosinophils 1.2 10^3/uL (0.0-0.5); ABS Lymphocytes 1.5 10^3/uL (1.0-4.8); ABS Monocytes 1.1 10^3/uL (0.0-1.1); ABS Neutrophils 6.5 10^3/uL (1.5-7.6); ABS Nucleated RBC 0.01 10^3/ul; Eosinophil % 11.8 %; Hematocrit 39.6 % (38-53); Hemoglobin 13.8 g/dL (13.2-16.3); Lymphocyte % 14.2 %; Mean Corpuscular Hemoglobin 30.7 pg (27-33); Mean Corpuscular Hgb Conc 34.7 g/dL (31-36); Mean Corpuscular Volume 88.4 fL (80-97); Mean Platelet Volume 8.2 fL (7.5-11.2); Nucleated Red Blood Cells % 0.1 /100 WBC (0.0-0.4); Platelet Count 203 10^3/uL (150-450); Red Blood Count 4.49 10^6/uL (4.06-5.63); Red Cell Distribution Width 13.3 % (12-17); White Blood Count 10.4 10^3/uL (3.6-10.2)
[2022-10-02] MEDS: Albuterol 2.5mg/3 ml (0.083%) NEB.SOLN INH SCH ×2 (08:05→19:29)
[2022-10-02] MEDS: Budesonide NEB 0.5 MG/2 ML NEB.SOLN INH SCH ×2 (08:05→19:29)
[2022-10-02] MEDS: Docusate LIQ 100 MG/10 ML UDC G TUBE SCH ×2 (09:20→23:12)
[2022-10-02] MEDS: Pantoprazole VIAL 40 MG VIAL IV SCH ×2 (09:20→23:14)
[2022-10-02] MEDS: CETIRIZINE 5 MG/5 ML SCH (13:30)
[2022-10-02] MEDS: PHENobarbital LIQ 30 MG/7.5 ML UDC PEG TUBE SCH ×2 (13:30→23:13)
[2022-10-03] MEDS: Enoxaparin 60 MG/0.6 ML SYR SUBCUT SCH ×2 (05:51→17:36)
[2022-10-03 06:39] LABS: Hematocrit 40.2 % (38-53); Mean Corpuscular Hgb Conc 34.8 g/dL (31-36); Mean Corpuscular Volume 89.2 fL (80-97); Mean Platelet Volume 8.7 fL (7.5-11.2); Platelet Count 218 10^3/uL (150-450); Red Blood Count 4.51 10^6/uL (4.06-5.63); Red Cell Distribution Width 13.2 % (12-17); White Blood Count 10.7 10^3/uL (3.6-10.2)
[2022-10-03 06:45] LABS: ABS Basophils 0.1 10^3/uL (0.0-0.1); ABS Eosinophils 1.2 10^3/uL (0.0-0.5); ABS Lymphocytes 2.4 10^3/uL (1.0-4.8); ABS Monocytes 1.7 10^3/uL (0.0-1.1); ABS Neutrophils 5.3 10^3/uL (1.5-7.6); Eosinophil % 11.6 %; Lymphocyte % 22.6 %
[2022-10-03 06:53] LABS: Creatinine, Serum 0.63 mg/dL (0.67-1.17); eGFR CKD-EPI 129.6 (>60)
[2022-10-03] MEDS: Albuterol 2.5mg/3 ml (0.083%) NEB.SOLN INH SCH ×2 (06:57→18:47)
[2022-10-03] MEDS: Budesonide NEB 0.5 MG/2 ML NEB.SOLN INH SCH ×2 (06:58→18:47)
[2022-10-03] MEDS: PHENobarbital LIQ 30 MG/7.5 ML UDC PEG TUBE SCH ×2 (09:02→22:25)
[2022-10-03] MEDS: Pantoprazole VIAL 40 MG VIAL IV SCH ×2 (09:04→22:25)
[2022-10-03] MEDS: Docusate LIQ 100 MG/10 ML UDC G TUBE SCH ×2 (09:04→22:25)
[2022-10-03] MEDS: CETIRIZINE 5 MG/5 ML SCH (14:27)
[2022-10-04] MEDS: Enoxaparin 60 MG/0.6 ML SYR SUBCUT SCH (05:28)
[2022-10-04 06:11] LABS: ABS Basophils 0.1 10^3/uL (0.0-0.1); ABS Lymphocytes 1.8 10^3/uL (1.0-4.8); ABS Monocytes 1.1 10^3/uL (0.0-1.1); ABS Neutrophils 3.8 10^3/uL (1.5-7.6); ABS Nucleated RBC 0.01 10^3/ul; Eosinophil % 13.3 %; Hematocrit 38.9 % (38-53); Hemoglobin 13.5 g/dL (13.2-16.3); Lymphocyte % 23.5 %; Mean Corpuscular Hemoglobin 30.2 pg (27-33); Mean Corpuscular Hgb Conc 34.7 g/dL (31-36); Mean Platelet Volume 8.4 fL (7.5-11.2); Nucleated Red Blood Cells % 0.2 /100 WBC (0.0-0.4); Platelet Count 205 10^3/uL (150-450); Red Blood Count 4.47 10^6/uL (4.06-5.63); Red Cell Distribution Width 13.3 % (12-17); White Blood Count 7.8 10^3/uL (3.6-10.2)
[2022-10-04] MEDS: Albuterol 2.5mg/3 ml (0.083%) NEB.SOLN INH SCH (07:56)
[2022-10-04] MEDS: Budesonide NEB 0.5 MG/2 ML NEB.SOLN INH SCH (07:56)
[2022-10-04] MEDS: Pantoprazole VIAL 40 MG VIAL IV SCH (09:30)
[2022-10-04] MEDS: Docusate LIQ 100 MG/10 ML UDC G TUBE SCH (09:30)
[2022-10-04] MEDS: CETIRIZINE 5 MG/5 ML SCH (09:35)
[2022-10-04] MEDS: PHENobarbital LIQ 30 MG/7.5 ML UDC PEG TUBE SCH (09:53)
[2022-10-04 10:26] VITALS: BP 109/71
== END 2022-10-04 12:50 | disposition home or self-care (01) | DRG 177 ==
LOC: EDHOLD 05:02 → ED 05:02 → OBSVTOIN 10:26 → SUATTDRO 10:26 → MED 13:50
PROVIDERS: ADMIT Internal Medicine; ATTEND Internal Medicine

== ENCOUNTER 2022-11-25 22:34 | Inpatient (IN) ==
[2022-11-25] MEDS ORDERED: Lactated Ringers SEPSIS* BAG 1,560 ML IV ONE (23:23)
[2022-11-26 00:26] LABS: ABS Basophils 0.1 10^3/uL (0.0-0.1); ABS Eosinophils 0.4 10^3/uL (0.0-0.5); ABS Lymphocytes 0.8 10^3/uL (1.0-4.8); ABS Monocytes 1.4 10^3/uL (0.0-1.1); ABS Neutrophils 9.8 10^3/uL (1.5-7.6); ABS Nucleated RBC 0.01 10^3/ul; Eosinophil % 3.2 %; Hematocrit 44.2 % (38-53); Hemoglobin 15.3 g/dL (13.2-16.3); Lymphocyte % 6.2 %; Mean Corpuscular Hemoglobin 30.5 pg (27-33); Mean Corpuscular Hgb Conc 34.7 g/dL (31-36); Mean Corpuscular Volume 87.9 fL (80-97); Mean Platelet Volume 8.3 fL (7.5-11.2); Nucleated Red Blood Cells % 0.1 /100 WBC (0.0-0.4); Platelet Count 214 10^3/uL (150-450); Red Blood Count 5.03 10^6/uL (4.06-5.63); Red Cell Distribution Width 13.2 % (12-17); White Blood Count 12.4 10^3/uL (3.6-10.2)
[2022-11-26 00:45] LABS: Albumin 3.9 g/dL (3.2-5.2); Albumin/Globulin Ratio 0.9 (1-3); C Reactive Protein 111.31 mg/L (<8.01); Calcium 9.1 mg/dL (8.6-10.3); Creatinine, Serum 0.6 mg/dL (0.67-1.17); Globulin 4.2 g/dL (2-4); Potassium 3.9 mmol/L (3.5-5.0); Total Bilirubin 0.4 mg/dL (0.2-1.0); Total Protein 8.1 g/dL (6.4-8.9); eGFR CKD-EPI 130.7 (>60)
[2022-11-26 00:47] LABS: Activated Partial Thrombo Time 39.3 seconds (26.0-38.0); INR 1.63 (0.83-1.13)
[2022-11-26] MEDS ORDERED: cefTRIAXone 1 gm/50 mL D5W 1 GM/50 ML BAG IV ONE (01:21)
[2022-11-26] MEDS ORDERED: Cefepime 1 GM in Dextrose 1 GM/50 ML BAG IV ONE (01:55)
[2022-11-26 02:16] LABS: Urine Appearance Cloudy; Urine Bilirubin Negative (Negative); Urine Blood 3+ (Negative); Urine Color Yellow; Urine Glucose Negative (Negative); Urine Ketones Negative (Negative); Urine Nitrite Positive (Negative); Urine Protein 2+(100 mg/dL) (Negative); Urine Specific Gravity 1.012 (1.002-1.030); Urine Urobilinogen Negative (Negative)
[2022-11-26 02:20] LABS: Urine Bacteria 1+ (Absent); Urine Red Blood Cell 3+(>10/hpf) (Absent); Urine Squamous Epithelial Cell Present (Absent); Urine White Blood Cell 3+(>20/hpf) (Absent)
[2022-11-26 02:32] LABS: High Sensitivity Troponin 1 Hr 4 pg/mL (<20)
[2022-11-26] MEDS ORDERED: Ibuprofen ADULT LIQ 600 MG/30 ML UDC G TUBE PRN (04:03)
[2022-11-26] MEDS ORDERED: Acetaminophen PED 160 mg/5 ml UDC G TUBE PRN (04:03)
[2022-11-26] MEDS ORDERED: Polyethylene Glycol 3350 17 GM PACKET G TUBE PRN (04:23)
[2022-11-26] MEDS ORDERED: Lactated Ringers 1000 ml BAG 1,000 ML IV ONE (04:49)
[2022-11-26] MEDS ORDERED: Magnesium Hydroxide LIQ 30 ML UDC G TUBE PRN (05:00)
[2022-11-26 06:04] LABS: Hematocrit 43.9 % (38-53); Hemoglobin 15.1 g/dL (13.2-16.3); Mean Corpuscular Hemoglobin 30.3 pg (27-33); Mean Corpuscular Hgb Conc 34.4 g/dL (31-36); Mean Corpuscular Volume 88.3 fL (80-97); Mean Platelet Volume 8.1 fL (7.5-11.2); Platelet Count 200 10^3/uL (150-450); Red Blood Count 4.97 10^6/uL (4.06-5.63); Red Cell Distribution Width 12.7 % (12-17); White Blood Count 8.7 10^3/uL (3.6-10.2)
[2022-11-26 06:20] LABS: Calcium 8.7 mg/dL (8.6-10.3); Creatinine, Serum 0.59 mg/dL (0.67-1.17); Potassium 4.1 mmol/L (3.5-5.0); eGFR CKD-EPI 131.4 (>60)
[2022-11-26 06:21] LABS: Urine Osmo 353 mOsm/kg (150-1150)
[2022-11-26 06:33] LABS: Osmolality Serum 277 mOsm/kg (275-295)
[2022-11-26] MEDS: Budesonide NEB 0.5 MG/2 ML NEB.SOLN INH SCH ×2 (08:28→19:39)
[2022-11-26] MEDS: PHENobarbital LIQ 30 MG/7.5 ML UDC PEG TUBE SCH ×2 (08:50→21:25)
[2022-11-26] MEDS: Cefepime 2 GM in Dextrose 2 GM/50 ML BAG IV SCH ×2 (08:51→18:37)
[2022-11-26] MEDS ORDERED: Glycerin ADULT 2.4 gm SUPP PR ONE (08:51)
[2022-11-26] MEDS ORDERED: Pantoprazole VIAL 40 MG VIAL IV SCH (09:00)
[2022-11-26] MEDS: Lansoprazole SUSP ORALSYR 3 MG/ML PEG TUBE SCH (10:16)
[2022-11-26] MEDS: NF: IPRATROPIUM BR (NF)0.03% NASAL 1 SPRAY BTL BOTH NARES SCH ×2 (11:05→21:00)
[2022-11-27] MEDS: Cefepime 2 GM in Dextrose 2 GM/50 ML BAG IV SCH ×2 (02:25→10:16)
[2022-11-27 07:10] LABS: Hematocrit 45.1 % (38-53); Hemoglobin 15.6 g/dL (13.2-16.3); Mean Corpuscular Hemoglobin 30.5 pg (27-33); Mean Corpuscular Hgb Conc 34.6 g/dL (31-36); Mean Corpuscular Volume 88.4 fL (80-97); Mean Platelet Volume 8.4 fL (7.5-11.2); Platelet Count 223 10^3/uL (150-450); White Blood Count 7.9 10^3/uL (3.6-10.2)
[2022-11-27 07:18] LABS: Blood Urea Nitrogen 7 mg/dL (6-24); CO2 Carbon Dioxide 25 mmol/L (22-32); Calcium 9.2 mg/dL (8.6-10.3); Chloride 99 mmol/L (101-111); Creatinine, Serum 0.63 mg/dL (0.67-1.17); Glucose 106 mg/dL (70-100); Sodium 132 mmol/L (135-145); eGFR CKD-EPI 128.8 (>60)
[2022-11-27 07:21] LABS: Anion Gap 8 mmol/L (2-16)
[2022-11-27] MEDS: Budesonide NEB 0.5 MG/2 ML NEB.SOLN INH SCH ×2 (09:30→19:03)
[2022-11-27 09:45] LABS: ABS Basophils 0.1 10^3/uL (0.0-0.1); ABS Eosinophils 0.2 10^3/uL (0.0-0.5); ABS Lymphocytes 1.5 10^3/uL (1.0-4.8); ABS Monocytes 1.8 10^3/uL (0.0-1.1); ABS Neutrophils 4.4 10^3/uL (1.5-7.6); ABS Nucleated RBC 0.01 10^3/ul; Eosinophil % 2.1 %; Lymphocyte % 18.6 %; Nucleated Red Blood Cells % 0.1 /100 WBC (0.0-0.4); RBC Morphology Normal (Normal)
[2022-11-27] MEDS: Lansoprazole SUSP ORALSYR 3 MG/ML PEG TUBE SCH (10:14)
[2022-11-27] MEDS: PHENobarbital LIQ 30 MG/7.5 ML UDC PEG TUBE SCH ×2 (10:15→22:17)
[2022-11-27] MEDS: NF: IPRATROPIUM BR (NF)0.03% NASAL 1 SPRAY BTL BOTH NARES SCH ×2 (10:34→22:29)
[2022-11-27] MEDS ORDERED: Albuterol 2.5mg/3 ml (0.083%) NEB.SOLN INH PRN (12:11)
[2022-11-27] MEDS ORDERED: Cefepime 2 GM in Dextrose 2 GM/50 ML BAG IV SCH (18:00)
[2022-11-28] MEDS: Cefepime 2 GM in Dextrose 2 GM/50 ML BAG IV SCH ×3 (02:33→22:16)
[2022-11-28 05:45] LABS: Calcium 8.7 mg/dL (8.6-10.3)
[2022-11-28 05:49] LABS: Potassium 4.6 mmol/L (3.5-5.0)
[2022-11-28 05:51] LABS: Creatinine, Serum 0.55 mg/dL (0.67-1.17); eGFR CKD-EPI 134.2 (>60)
[2022-11-28] MEDS: Budesonide NEB 0.5 MG/2 ML NEB.SOLN INH SCH ×2 (06:58→19:32)
[2022-11-28] MEDS: PHENobarbital LIQ 30 MG/7.5 ML UDC PEG TUBE SCH ×2 (10:39→20:41)
[2022-11-28] MEDS: Lansoprazole SUSP ORALSYR 3 MG/ML PEG TUBE SCH (10:40)
[2022-11-28] MEDS ORDERED: NS 0.9% 1000 ml BAG 1,000 ML IV SCH (11:00)
[2022-11-28] MEDS: NF: IPRATROPIUM BR (NF)0.03% NASAL 1 SPRAY BTL BOTH NARES SCH ×2 (13:29→20:42)
[2022-11-29 06:28] LABS: Calcium 8.8 mg/dL (8.6-10.3); Creatinine, Serum 0.53 mg/dL (0.67-1.17); Potassium 4.2 mmol/L (3.5-5.0); eGFR CKD-EPI 135.7 (>60)
[2022-11-29] MEDS: Budesonide NEB 0.5 MG/2 ML NEB.SOLN INH SCH (07:46)
[2022-11-29] MEDS: Cefepime 2 GM in Dextrose 2 GM/50 ML BAG IV SCH (09:51)
[2022-11-29] MEDS: NF: IPRATROPIUM BR (NF)0.03% NASAL 1 SPRAY BTL BOTH NARES SCH (09:54)
[2022-11-29] MEDS: PHENobarbital LIQ 30 MG/7.5 ML UDC PEG TUBE SCH (09:55)
[2022-11-29] MEDS: Lansoprazole SUSP ORALSYR 3 MG/ML PEG TUBE SCH (09:55)
[2022-11-29 10:56] VITALS: BP 131/85
== END 2022-11-29 17:05 | disposition home or self-care (01) | DRG 872 ==
LOC: ED 22:34 → SUATTDRO 11-26 02:52 → EDHOLD 11-26 02:52 → MED 11-27 11:42
PROVIDERS: ADMIT Student in an Organized Health Care Education/Training Program; ATTEND Hospitalist

== ENCOUNTER 2023-09-01 20:00 | Inpatient (IN) ==
[2023-09-01 21:18] LABS: Urine Appearance Extra Turbid; Urine Bilirubin Negative (Negative); Urine Blood 3+ (Negative); Urine Glucose Negative (Negative); Urine Ketones Negative (Negative); Urine Nitrite Negative (Negative); Urine Protein 2+ (>=100 mg/dL) (Negative); Urine Specific Gravity 1.009 (1.002-1.030); Urine Urobilinogen Negative (Negative); Urine pH 7.5 (5.0-8.0)
[2023-09-01 21:34] LABS: Urine Bacteria 3+ /HPF (Absent); Urine Red Blood Cell 3+(>10/hpf) /HPF (0-Trace); Urine Squamous Epithelial Cell Present /HPF (Absent); Urine White Blood Cell 3+(>20/hpf) /HPF (0-Trace)
[2023-09-01 21:35] LABS: Urine Color Amber
[2023-09-01] MEDS: cefTRIAXone 1 gm/50 mL D5W 1 GM/50 ML BAG IV ONE (22:40)
[2023-09-01 22:42] LABS: Albumin 3.9 g/dL (3.2-5.2); C Reactive Protein 17.5 mg/L (<8.01); Calcium 9.5 mg/dL (8.6-10.3); Creatinine, Serum 0.49 mg/dL (0.67-1.17); Globulin 3.9 g/dL (2-4); Potassium 4.1 mmol/L (3.5-5.0); Total Bilirubin 0.4 mg/dL (0.2-1.0); Total Protein 7.8 g/dL (6.4-8.9)
[2023-09-01] MEDS ORDERED: Lidocaine 1% VIAL 10 MG/ML 30 ML VIAL ONE (22:46)
[2023-09-01] MEDS: cefTRIAXone VIAL 1,000 MG VIAL IM ONE (22:56)
[2023-09-01] MEDS: Lidocaine 1% VIAL 10 MG/ML 30 ML VIAL INJ ONE (22:57)
[2023-09-02 02:51] LABS: ABS Eosinophils 0.4 10^3/uL (0.0-0.5); ABS Lymphocytes 1.4 10^3/uL (1.0-4.8); ABS Monocytes 1.1 10^3/uL (0.0-1.1); ABS Neutrophils 9.4 10^3/uL (1.5-7.6); ABS Nucleated RBC 0.02 10^3/ul; Eosinophil % 3.4 %; Hematocrit 46.5 % (38-53); Hemoglobin 15.7 g/dL (13.2-16.3); Lymphocyte % 11.6 %; Mean Corpuscular Hemoglobin 29.6 pg (27-33); Mean Corpuscular Hgb Conc 33.8 g/dL (31-36); Mean Corpuscular Volume 87.6 fL (80-97); Mean Platelet Volume 8.8 fL (7.5-11.2); Nucleated Red Blood Cells % 0.2 %/100WBC (0.0-0.8); Platelet Count 245 10^3/uL (150-450); Red Blood Count 5.31 10^6/uL (4.06-5.63); Red Cell Distribution Width 13.6 % (12-17); White Blood Count 12.4 10^3/uL (3.6-10.2)
[2023-09-02] MEDS: Cefepime 2 GM in Dextrose 2 GM/50 ML BAG IV ONE (03:40)
[2023-09-02] MEDS ORDERED: Polyethylene Glycol 3350 17 GM PACKET PO PRN (04:39)
[2023-09-02] MEDS ORDERED: Senna TAB 8.6 mg TAB PO PRN (04:39)
[2023-09-02] MEDS ORDERED: Albuterol 2.5mg/3 ml (0.083%) NEB.SOLN INH PRN (05:36)
[2023-09-02] MEDS ORDERED: PHENobarbital LIQ 30 MG/7.5 ML UDC PO SCH (06:00)
[2023-09-02] MEDS: NF: IPRATROPIUM BR (NF)0.03% NASAL 1 SPRAY BTL BOTH NARES SCH (06:16)
[2023-09-02] MEDS: Budesonide NEB 0.5 MG/2 ML NEB.SOLN INH SCH (08:47)
[2023-09-02] MEDS: PHENobarbital LIQ 30 MG/7.5 ML UDC PEG TUBE SCH (09:43)
[2023-09-02] MEDS: Docusate LIQ 100 MG/10 ML UDC G TUBE SCH (09:43)
[2023-09-02 11:40] LABS: ABS Basophils 0.1 10^3/uL (0.0-0.1); ABS Eosinophils 0.4 10^3/uL (0.0-0.5); ABS Lymphocytes 1.5 10^3/uL (1.0-4.8); ABS Monocytes 1.3 10^3/uL (0.0-1.1); ABS Neutrophils 8.2 10^3/uL (1.5-7.6); ABS Nucleated RBC 0.02 10^3/ul; Eosinophil % 3.8 %; Hematocrit 45.3 % (38-53); Hemoglobin 15.4 g/dL (13.2-16.3); Lymphocyte % 13.2 %; Mean Corpuscular Hgb Conc 34.1 g/dL (31-36); Mean Corpuscular Volume 88.1 fL (80-97); Mean Platelet Volume 8.8 fL (7.5-11.2); Nucleated Red Blood Cells % 0.2 %/100WBC (0.0-0.8); Platelet Count 237 10^3/uL (150-450); Red Blood Count 5.14 10^6/uL (4.06-5.63); Red Cell Distribution Width 13.8 % (12-17); White Blood Count 11.5 10^3/uL (3.6-10.2)
[2023-09-02 12:09] LABS: Calcium 9.1 mg/dL (8.6-10.3); Creatinine, Serum 0.65 mg/dL (0.67-1.17); Magnesium 2.1 mg/dL (1.9-2.7); Potassium 3.8 mmol/L (3.5-5.0); eGFR CKD-EPI 127.6 (>60)
[2023-09-02] MEDS: Polyethylene Glycol 3350 17 GM PACKET G TUBE SCH (12:27)
[2023-09-02] MEDS: Glycerin ADULT 2.4 gm SUPP PR ONE (14:28)
[2023-09-02] MEDS: Cefepime 2 GM in Dextrose 2 GM/50 ML BAG IV SCH (14:32)
[2023-09-02] MEDS ORDERED: Cefepime 2 GM in Dextrose 2 GM/50 ML BAG IV SCH (15:00)
[2023-09-03 09:47] LABS: ALT 24 U/L (7-52); Albumin 4.1 g/dL (3.2-5.2); Albumin/Globulin Ratio 1.3 (1-3); Alkaline Phosphatase 113 U/L (35-149); Anion Gap 10 mmol/L (2-16); Blood Urea Nitrogen 9 mg/dL (6-24); CO2 Carbon Dioxide 21 mmol/L (22-32); Calcium 9.1 mg/dL (8.6-10.3); Chloride 99 mmol/L (101-111); Globulin 3.2 g/dL (2-4); Glucose 103 mg/dL (70-100); Sodium 130 mmol/L (135-145); Total Bilirubin 0.4 mg/dL (0.2-1.0); Total Protein 7.3 g/dL (6.4-8.9); eGFR CKD-EPI 124.8 (>60)
[2023-09-03 10:38] LABS: ABS Basophils 0.1 10^3/uL (0.0-0.1); ABS Eosinophils 0.4 10^3/uL (0.0-0.5); ABS Lymphocytes 1.5 10^3/uL (1.0-4.8); ABS Monocytes 1.3 10^3/uL (0.0-1.1); ABS Neutrophils 4.8 10^3/uL (1.5-7.6); ABS Nucleated RBC 0.02 10^3/ul; Eosinophil % 4.9 %; Hematocrit 44.6 % (38-53); Hemoglobin 15.1 g/dL (13.2-16.3); Lymphocyte % 18.8 %; Mean Corpuscular Hemoglobin 29.8 pg (27-33); Mean Corpuscular Hgb Conc 33.9 g/dL (31-36); Mean Platelet Volume 9.3 fL (7.5-11.2); Nucleated Red Blood Cells % 0.2 %/100WBC (0.0-0.8); Platelet Count 228 10^3/uL (150-450); Red Blood Count 5.06 10^6/uL (4.06-5.63); White Blood Count 8.2 10^3/uL (3.6-10.2)
[2023-09-03 11:04] LABS: Potassium Redraw 3.8 mmol/L (3.5-5.0)
[2023-09-03] MEDS: Senna TAB 8.6 mg TAB PO SCH (22:10)
[2023-09-04 06:24] LABS: Hematocrit 44.6 % (38-53); Hemoglobin 15.1 g/dL (13.2-16.3); Mean Corpuscular Hemoglobin 29.8 pg (27-33); Mean Corpuscular Hgb Conc 33.8 g/dL (31-36); Mean Corpuscular Volume 88.3 fL (80-97); Mean Platelet Volume 8.6 fL (7.5-11.2); Platelet Count 195 10^3/uL (150-450); Red Blood Count 5.05 10^6/uL (4.06-5.63); Red Cell Distribution Width 13.7 % (12-17); White Blood Count 7.3 10^3/uL (3.6-10.2)
[2023-09-04 07:11] LABS: Calcium 8.9 mg/dL (8.6-10.3); Creatinine, Serum 0.55 mg/dL (0.67-1.17); Potassium 4.1 mmol/L (3.5-5.0); eGFR CKD-EPI 134.2 (>60)
[2023-09-04] MEDS: Lansoprazole SUSP ORALSYR 3 MG/ML G TUBE SCH (11:59)
[2023-09-05] MEDS ORDERED: Zosyn per Pharmacy NOTE FOLLOW UP SCH (11:00)
[2023-09-05] MEDS: Piperacillin/Tazobac 3.375 BAG 3.375 GM/100 ML BAG IV ONE (12:05)
[2023-09-05] MEDS: ZOSYN 3.375 GM Q8H per EXTENDED INFUSION IV SCH (15:52)
[2023-09-07 09:50] VITALS: BP 108/95
== END 2023-09-07 14:45 | disposition home or self-care (01) | DRG 698 ==
LOC: EDHOLD 20:00 → ED 20:00 → MED 09-02 11:17 → SUATTDRO 09-03 08:00
PROVIDERS: ADMIT Internal Medicine; ATTEND Internal Medicine

== ENCOUNTER 2024-01-31 11:37 | Inpatient (IN) ==
[2024-01-31 12:15] LABS: ABS Basophils 0.1 10^3/uL (0.0-0.1); ABS Eosinophils 0.1 10^3/uL (0.0-0.5); ABS Lymphocytes 1.5 10^3/uL (1.0-4.8); ABS Monocytes 1.4 10^3/uL (0.0-1.1); ABS Neutrophils 6.6 10^3/uL (1.5-7.6); ABS Nucleated RBC 0.01 10^3/ul; Eosinophil % 0.9 %; Hematocrit 47.3 % (38-53); Hemoglobin 16.5 g/dL (13.2-16.3); Lymphocyte % 15.8 %; Mean Corpuscular Hemoglobin 30.2 pg (27-33); Mean Corpuscular Hgb Conc 34.9 g/dL (31-36); Mean Corpuscular Volume 86.4 fL (80-97); Nucleated Red Blood Cells % 0.1 %/100WBC (0.0-0.8); Platelet Count 234 10^3/uL (150-450); Red Blood Count 5.47 10^6/uL (4.06-5.63); Red Cell Distribution Width 14.4 % (12-17); White Blood Count 9.7 10^3/uL (3.6-10.2)
[2024-01-31] MEDS: Lactated Ringers 1000 ml BAG IV.FLUID IV ONE (12:21)
[2024-01-31 12:26] LABS: INR 1.73 (0.85-1.14)
[2024-01-31 13:05] LABS: ALT 16 U/L (7-52); Albumin 3.7 g/dL (3.2-5.2); Alkaline Phosphatase 99 U/L (35-149); Anion Gap 9 mmol/L (2-16); Blood Urea Nitrogen 5 mg/dL (6-24); CO2 Carbon Dioxide 27 mmol/L (22-32); Calcium 9.1 mg/dL (8.6-10.3); Chloride 93 mmol/L (101-111); Creatinine, Serum 0.63 mg/dL (0.67-1.17); Globulin 3.8 g/dL (2-4); Glucose 101 mg/dL (70-100); Sodium 129 mmol/L (135-145); Total Bilirubin 0.6 mg/dL (0.2-1.0); Total Protein 7.5 g/dL (6.4-8.9)
[2024-01-31 13:10] LABS: Urine Appearance Extra Turbid; Urine Bilirubin Negative (Negative); Urine Blood 3+ (Negative); Urine Glucose Negative (Negative); Urine Ketones Negative (Negative); Urine Nitrite Negative (Negative); Urine Protein 1+ (>=30 mg/dL) (Negative); Urine Specific Gravity 1.002 (1.002-1.030); Urine Urobilinogen Negative (Negative)
[2024-01-31 13:18] LABS: Urine Bacteria 3+ /HPF (Absent); Urine Red Blood Cell 3+(>10/hpf) /HPF (0-Trace); Urine White Blood Cell 3+(>20/hpf) /HPF (0-Trace)
[2024-01-31 13:30] LABS: Activated Partial Thrombo Time 38.9 seconds (26.0-38.0)
[2024-01-31] MEDS: cefTRIAXone 1 gm/50 mL D5W 1 GM/50 ML BAG IV ONE (13:49)
[2024-01-31 14:29] LABS: Urine Color Light-Yellow
[2024-01-31] MEDS ORDERED: Albuterol 2.5mg/3 ml (0.083%) NEB.SOLN INH PRN (15:30)
[2024-01-31] MEDS ORDERED: Acetaminophen PED 160 mg/5 ml UDC G TUBE PRN (15:30)
[2024-01-31] MEDS ORDERED: Zosyn per Pharmacy NOTE FOLLOW UP SCH (16:00)
[2024-01-31] MEDS ORDERED: IPRATROPIUM BR (NF)0.03% NASAL 1 SPRAY BTL BOTH NARES SCH (16:00)
[2024-01-31] MEDS: ZOSYN 3.375 GM x ONE DOSE over 30 miuntes IV (16:32)
[2024-01-31] MEDS: Lactated Ringers 1000 ml BAG 1,000 ML IV ONE ×2 (17:53→20:09)
[2024-01-31] MEDS: Budesonide NEB 0.5 MG/2 ML NEB.SOLN INH SCH (19:07)
[2024-01-31] MEDS: ZOSYN 3.375 GM Q8H per EXTENDED INFUSION IV SCH (20:11)
[2024-01-31] MEDS: PHENobarbital LIQ 30 MG/7.5 ML UDC PEG TUBE SCH (20:13)
[2024-01-31] MEDS ORDERED: [UNRECOGNIZED DRUG - REMARK] G TUBE SCH (21:00)
[2024-02-01] MEDS: ZOSYN 3.375 GM Q8H per EXTENDED INFUSION IV SCH (04:40)
[2024-02-01] MEDS: Pantoprazole VIAL 40 MG VIAL IV SCH (08:17)
[2024-02-01] MEDS: Polyethylene Glycol 3350 17 GM PACKET G TUBE SCH (08:18)
[2024-02-01 13:02] LABS: ABS Basophils 0.1 10^3/uL (0.0-0.1); ABS Eosinophils 0.4 10^3/uL (0.0-0.5); ABS Lymphocytes 1.2 10^3/uL (1.0-4.8); ABS Monocytes 1.3 10^3/uL (0.0-1.1); ABS Neutrophils 4.8 10^3/uL (1.5-7.6); ABS Nucleated RBC 0.01 10^3/ul; Eosinophil % 5.4 %; Hematocrit 45.3 % (38-53); Hemoglobin 15.3 g/dL (13.2-16.3); Lymphocyte % 15.2 %; Mean Corpuscular Hemoglobin 29.4 pg (27-33); Mean Corpuscular Hgb Conc 33.7 g/dL (31-36); Mean Corpuscular Volume 87.2 fL (80-97); Mean Platelet Volume 9.1 fL (7.5-11.2); Nucleated Red Blood Cells % 0.1 %/100WBC (0.0-0.8); Platelet Count 172 10^3/uL (150-450); Red Cell Distribution Width 13.5 % (12-17); White Blood Count 7.8 10^3/uL (3.6-10.2)
[2024-02-01 13:22] LABS: C Reactive Protein 176.77 mg/L (<8.01); Calcium 8.8 mg/dL (8.6-10.3); Creatinine, Serum 0.56 mg/dL (0.67-1.17); Magnesium 1.9 mg/dL (1.9-2.7); Potassium 3.8 mmol/L (3.5-5.0); eGFR CKD-EPI 132.6 (>60)
[2024-02-01] MEDS: Lidocaine 1% MPF 5 ML VIAL INJ ONE (13:37)
[2024-02-01] MEDS ORDERED: Vancomycin per Pharmacy 1 EA NOTE FOLLOW UP SCH (15:00)
[2024-02-01] MEDS: Vancomycin 1,000 MG in NS 0.9% 250 ml 250 ML IVPB ONE (15:21)
[2024-02-01 19:09] LABS: Urine Appearance Turbid; Urine Bilirubin Negative (Negative); Urine Blood 2+ (Negative); Urine Color Light-Yellow; Urine Glucose Negative (Negative); Urine Ketones Negative (Negative); Urine Nitrite 1+ (Negative); Urine Protein Trace (Negative); Urine Specific Gravity 1.013 (1.002-1.030); Urine Urobilinogen Negative (Negative); Urine pH 7.5 (5.0-8.0)
[2024-02-01 19:19] LABS: Urine Bacteria 2+ /HPF (Absent); Urine Red Blood Cell 3+(>10/hpf) /HPF (0-Trace); Urine Transitional Epithelial Present /HPF (Absent); Urine White Blood Cell 3+(>20/hpf) /HPF (0-Trace)
[2024-02-02 09:25] LABS: Hematocrit 42.6 % (38-53); Hemoglobin 14.5 g/dL (13.2-16.3); Mean Corpuscular Hemoglobin 29.7 pg (27-33); Mean Corpuscular Hgb Conc 33.9 g/dL (31-36); Mean Corpuscular Volume 87.5 fL (80-97); Mean Platelet Volume 8.7 fL (7.5-11.2); Platelet Count 183 10^3/uL (150-450); Red Blood Count 4.87 10^6/uL (4.06-5.63); Red Cell Distribution Width 13.8 % (12-17); White Blood Count 6.8 10^3/uL (3.6-10.2)
[2024-02-02 09:43] LABS: Calcium 8.8 mg/dL (8.6-10.3); Creatinine, Serum 0.53 mg/dL (0.67-1.17); Potassium 3.7 mmol/L (3.5-5.0); eGFR CKD-EPI 134.9 (>60)
[2024-02-02 10:45] LABS: ABS Basophils 0.1 10^3/uL (0.0-0.1); ABS Eosinophils 0.9 10^3/uL (0.0-0.5); ABS Lymphocytes 1.6 10^3/uL (1.0-4.8); ABS Monocytes 1.5 10^3/uL (0.0-1.1); ABS Neutrophils 2.8 10^3/uL (1.5-7.6); Eosinophil % 13.2 %; Lymphocyte % 23.5 %
[2024-02-02] MEDS: Vancomycin 1000 MG in NS 0.9% 250 ML IVPB SCH (11:21)
[2024-02-02] MEDS: Vancomycin 750 MG in NS 0.9% 250 ML IVPB SCH (11:51)
[2024-02-02] MEDS: Vancomycin Random Level NOTE FOLLOW UP ONE (12:19)
[2024-02-03] MEDS ORDERED: Vancomycin Trough Check NOTE FOLLOW UP ONE (10:30)
[2024-02-03 12:20] LABS: Calcium 8.9 mg/dL (8.6-10.3); Creatinine, Serum 0.55 mg/dL (0.67-1.17); Magnesium 1.9 mg/dL (1.9-2.7); Phosphorus 2.6 mg/dL (2.5-5.0); Potassium 4.1 mmol/L (3.5-5.0); eGFR CKD-EPI 133.4 (>60)
[2024-02-03] MEDS: Vancomycin Trough Check NOTE FOLLOW UP ONE (12:36)
[2024-02-03] MEDS: Vancomycin 750 MG in NS 0.9% 250 ML IVPB SCH (20:18)
[2024-02-04 12:40] LABS: Calcium 8.8 mg/dL (8.6-10.3); Creatinine, Serum 0.51 mg/dL (0.67-1.17); Magnesium 1.9 mg/dL (1.9-2.7); Potassium 3.9 mmol/L (3.5-5.0); eGFR CKD-EPI 136.4 (>60)
[2024-02-04] MEDS: Vancomycin Trough Check NOTE FOLLOW UP ONE (12:42)
[2024-02-04] MEDS: ZOSYN 3.375 GM Q8H per EXTENDED INFUSION IV SCH (17:08)
[2024-02-05 06:01] LABS: Anion Gap 8 mmol/L (2-16); Blood Urea Nitrogen 6 mg/dL (6-24); CO2 Carbon Dioxide 28 mmol/L (22-32); Chloride 104 mmol/L (101-111); Creatinine, Serum 0.47 mg/dL (0.67-1.17); Glucose 126 mg/dL (70-100); Sodium 140 mmol/L (135-145); eGFR CKD-EPI 139.8 (>60)
[2024-02-05 14:15] VITALS: BP 124/97
== END 2024-02-05 14:14 | disposition home or self-care (01) | DRG 698 ==
LOC: EDHOLD 11:37 → ED 11:37 → SUATTDRO 14:56 → EDHOLD 21:48 → MEDTELE 21:55
PROVIDERS: ADMIT Internal Medicine; ATTEND Student in an Organized Health Care Education/Training Program